=== PATIENT | female | born 2005 | race Two or more races ===

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

== ENCOUNTER 2023-10-03 16:11 | Emergency (ER) | payer MEDICAID, SELFPAY ==
[2023-10-03 16:17] VITALS: BP 147/86; PULSE 87; RESP 16; TEMP 36.4; O2SAT 100; BMI 31.2
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
[2023-10-03 18:02] LABS: UPreg QC Valid YES; Urine Pregnancy NEGATIVE (NEGATIVE)
[2023-10-03] MEDS: cefTRIAXone sodium 500 MG, Lidocaine HCl 1 % MPF 1 ML IM (18:04)
[2023-10-03] MEDS: Diphth,Pertus(ACell),Tet Adult 0.5 ML SYRINGE IM (18:05)
[2023-10-03] MEDS: levonorgestreL 1.5 MG TABLET PO (18:08)
[2023-10-03] MEDS: SANE Doxycycline Monohydrate 100 MG CAPSULE PO (18:10)
--- NOTE | 2023-10-03 18:15 | PC.NURSE ---
NANCI nurse at bedside and [place] [employer] outside room for statement
--- NOTE | 2023-10-03 19:00 | PC.NURSE ---
asssumed care of pt unable to administer medication or vitals at this time due to SANE nurse at bedside for examination
--- NOTE | 2023-10-03 19:52 | MHC.EDTECH ---
This tech took over care of patient at 1900, Latonya Nurse rang call warner for labs,this tech obtained labs and sent to lab.
[2023-10-03 19:53] LABS: MANUAL DIFF FLAG NO
--- NOTE | 2023-10-03 20:01 | MHC.EDTECH ---
Sane nurse with patient at this time,will update vitals when sane kit completed.
[2023-10-03 20:02] LABS: Basophils Absolute Auto 0.1 X10*3/uL (0.0-0.2); Basophils Percent Auto 0.8 % (0-2); Eosinophils Absolute Auto 0.1 X10*3/uL (0.0-0.4); Hematocrit 32.9 % (37.0-47.0); Imm Gran Abs Auto 0.03 X10*3/uL (0.00-0.03); Imm Gran Pct Auto 0.4 % (0.0-0.4); Lymphocytes Absolute Auto 1.7 X10*3/uL (1.2-4.9); Lymphocytes Percent Auto 23.5 % (20-40); Mean Corpuscular HGB Conc 33.4 g/dl (31.0-35.0); Mean Corpuscular Hemoglobin 28.2 pg (27.0-33.0); Mean Corpuscular Volume 84.4 fL (80.0-98.0); Mean Platelet Volume 8.8 fL (9.4-12.3); Monocytes Absolute Auto 0.5 X10*3/uL (0.1-1.2); Monocytes Percent Auto 6.6 % (2-11); Neutrophils Absolute Auto 4.9 x10*3/uL (2.0-8.3); Neutrophils Percent Auto 67.7 % (45-73); Platelet Count 371 X10*3/uL (160-400); Red Cell Distribution Width 14.1 % (11.0-16.0); White Blood Count 7.2 X10*3/uL (4.8-10.8)
[2023-10-03 20:09] LABS: Alanine Aminotransferase 18 U/L (0-31); Aspartate Amino Transferase 25 U/L (5-31); Creatinine Clr Calc Pharmacy 136.1; Estimated Glomerular Filt Rate > 60
[2023-10-03 20:10] LABS: Alanine Aminotransferase 17 U/L (0-31); Albumin Level 4.7 g/dL (3.5-5.0); Alkaline Phosphatase 70 U/L (39-117); Anion Gap 16 (12-20); Aspartate Amino Transferase 25 U/L (5-31); Bilirubin Total 0.7 mg/dL (0.0-1.0); Blood Urea Nitrogen 9 mg/dL (9-16); Calcium 9.4 mg/dL (8.4-10.2); Carbon Dioxide 20 mmol/L (22-29); Chloride 108 mmol/L (96-108); Creatinine Clr Calc Pharmacy 142.1; Estimated Glomerular Filt Rate > 60; Glucose Random 75 mg/dL (60-115); Potassium 3.3 mmol/L (3.3-5.1); Sodium 141 mmol/L (135-145); Total Protein 8.3 g/dL (6.5-8.0)
[2023-10-03 21:07] LABS: Appearance Urine Turbid; Glucose Urine UA Negative (Negative); Leukocyte Esterase Urine Negative (Negative); Nitrite Urine Negative (Negative); PH 5.5 (5.0-9.0); Specific Gravity - Urine >= 1.030 (1.005-1.025); UMIC TRIGGER UA YES; Urine Blood Trace (Negative); Urine Ketones 80 mg/dL (Negative); Urine Protein 30 (1+) mg/dL (Neg-Trace)
[2023-10-03 21:09] LABS: Color Urine Yellow
[2023-10-03 21:12] VITALS: BP 115/49; PULSE 79; RESP 18; TEMP 36.7; O2SAT 98
[2023-10-03 21:12] LABS: Bacteria Urine None Seen (None Seen); WBC Urine 0-5 /HPF (0-5)
--- NOTE | 2023-10-03 21:13 | MHC.EDTECH ---
Patient ambulated to bathroom,urine sample collected,swabs obtained and sent to lab. Vitals updated at this time,RN aware
[2023-10-03 21:43] VITALS: BP 115/49; PULSE 79; RESP 17; TEMP 36.7; O2SAT 99
[2023-10-04 02:56] LABS: CT PCR NOT DETECTED (Not Detect.); NG PCR NOT DETECTED (Not Detect.)
[2023-10-04 08:32] LABS: Syphilis Screen Nonreactive (Nonreactive)
[2023-10-04 08:33] LABS: HBS Num1 1.25 mIU/mL (0-7.99); HBsAGNum1 0.32 S/CO (0.00-0.99); HIV AB/AG Nonreactive (Nonreactive); HIV Num 1 0.06 S/CO (0.00-0.99); Hepatitis B Surface Antigen Negative (Negative); ~HepC Num1 0.13 S/CO (0.00-0.79); ~Hepatitis B Surface Antibody NONREACTIVE (Nonreactive); ~Hepatitis C Antibody Nonreactive (Nonreactive)
[2023-10-04 11:21] LABS: BV Int Neg Control Negative (Negative); BV Int Pos Control Positive (Positive)
== END 2023-10-03 21:44 | disposition home or self-care (01) ==
PROVIDERS: Physician Assistant; Emergency Provider Emergency Medicine Emergency Medical Services
DX: S16.1XXA Strain of muscle, fascia and tendon at neck level, initial encounter (principal); S30.814A Abrasion of vagina and vulva, initial encounter; T76.21XA Adult sexual abuse, suspected, initial encounter; N89.8 Other specified noninflammatory disorders of vagina; M79.651 Pain in right thigh; M54.50 Low back pain, unspecified; M54.2 Cervicalgia; R51.9 Headache, unspecified; Y93.9 Activity, unspecified; Y92.9 Unspecified place or not applicable; Y99.8 Other external cause status; Z11.52 Encounter for screening for COVID-19; Z20.2 Contact with and (suspected) exposure to infections with a predominantly sexual mode of transmission; Z79.899 Other long term (current) drug therapy; Z23 Encounter for immunization
CPT/HCPCS: 0353U; 36415; 80053; 81001; 81025; 82565; 84450; 84460; 85025; 86706; 86780; 86803; 87340; 87389; 87480; 87510; 87660; 90471; 90472; 90651; 90715; 96372; 99284; 99285; J0696

== ENCOUNTER 2024-08-07 09:49 | Outpatient (REF) | payer MEDICAID, SELFPAY ==
--- OUTSIDE RECORDS SUMMARY | 2024-08-07 10:33 | XMS_ITS | Encounter Summary ---
Author Organization [facility] Address [address] [place] [address] Care Team Providers Care Livestock Feeder Name Role Phone Anitha Landaverde NP Primary Care Provider [phone] Encounter Details Date Type Department Care Team (Late st Contact Info) Description 07/25/2024 Patient Outreach [facility] [address] [place] [address] Anitha Landaverde NP [address] [place] [address] Social History Tobacco Use Types Packs/Day Years Used Date Smoking Tobacco: Never Assessed Comments Unknown Sex and Gender Information Value Date Recorded Sex Assigned at Female 05/03/2022 10:21 AM EDT Legal Sex Female 10:21 AM EDT Gender Identity Female 05/03/2022 10:21 AM EDT Sexual Orientation Choose not to disclose 2021 10:21 AM EDT documented as of this encounter Plan of Treatment Not on file documented as of this encounter Visit Diagnoses Not on filedocumented in this encounter Care Teams Livestock Feeder Relationship Specialty Start Date End Date Anitha Landaverde NP [address] [place] [address] PCP - General Family Medicine 04/26/23 08/06/24 documented as of this encounter
--- OUTSIDE RECORDS SUMMARY | 2024-08-07 10:33 | XMS_ITS | Encounter Summary ---
Author Organization [facility] Address [address] [facility] [address], [place] [address] Care Team Providers Care Fabrication Technician Name Role Phone Anitha Landaverde NP Primary Care Provider [phone] Reason for Visit * Reason Comments Pre-visit Planning (Unable to reach for PVP screening, LVM) Encounter Details Date Type Department Care Team ([facility] st Contact Info) Description 07/25/2024 Patient Outreach [facility] MED[facility]INE [address] [place] [address] Anitha Landaverde NP [address] [place] [address] Pre-visit Planning ((Unable to reach for PVP screening, LVM)) Social History Tobacco Use Types Packs/Day Years Used Date Smoking Tobacco: Never Assessed Comments Unknown Sex and Gender Information Value Date Recorded Sex Assigned at Female 05/03/2022 10:21 AM EDT Legal Sex Female 10:21 AM EDT Gender Identity Female 05/03/2022 10:21 AM EDT Sexual Orientation Choose not to disclose 2021 10:21 AM EDT documented as of this encounter Progress Notes * Alexandria Peng - 07/25/2024 11:21 AM EST CC Alexandria. Placed outbound call to patient to complete pre-visit planning. No answer at this time. Patient name and were not confirmed. CC left voicemail requesting return call. Direct contact information provided. documented in this encounter Plan of Treatment Not on file documented as of this encounter Visit Diagnoses Not on filedocumented in this encounter Care Teams Fabrication Technician Relationship Specialty Start Date End Date Anitha Landaverde NP [address] [place] [address] PCP - General Family Medicine 04/26/23 08/06/24 documented as of this encounter
--- OUTSIDE RECORDS SUMMARY | 2024-08-07 10:33 | XMS_ITS | Clinical Summary ---
Author Organization [employer] Address [address] [facility] 7[address] [place] [address] Care Team Providers Care Research Greenhouse Supervisor Name Role Phone Jessica Shoemaker MD Primary Care Provider [phone] Allergies No known active allergies Medications No known medications Active Problems Problem Noted Date Diagnosed Date Disturbance in sleep behavior 08/07/2024 Mood altered 08/07/2024 Screening examination for STI 08/07/2024 Developmental delay 06/22/2018 Encounters Date Type Department Care Team Description 08/07/2024 9:45 AM EST Office Visit [facility] MEDICINE [address] [place] [id number] Jessica Shoemaker MD Screening examination for STI (Primary Dx); Dietary counseling; Exercise counseling; Class 1 obesity without serious comorbidity with body mass index (BMI) of 30.0 to 30.9 in adult, unspecified obesity type 08/07/2024 Travel 07/25/2024 Patient Outreach [facility] [address] [place] [id number] Anitha Landaverde NP Pre-visit Planning ((Unable to reach for PVP screening, LVM)) 07/25/2024 Patient Outreach [facility] [address] [place] [id number] Anitha Landaverde NP from Last 3 Months Social History Tobacco Use Types Packs/Day Years Used Date Smoking Tobacco: Never Passive Smoke Exposure: Never Smokeless Tobacco: Never Tobacco Cessation:Counseling Given: Not Answered Depression Answer Date Recorded Patient Health Questionnaire-9 Score 0 08/07/2024 Patient Health Questionnaire-9 Score 0 08/07/2024 Last PHQ-9: Questionnaire Data Not on file 0 08/07/2024 Housing Stability Answer Date Recorded What is your housing situation today? I have chris sun 08/07/[address] you li ve. Do you have problems with any of the following? None of the above 08/07/2024 Food Insecurity Answer Date Recorded Within the past 12 months, y ou worried that your food would run out before you got money to buy more: Never True 08/07/2024 Within the past 12 months,th e food you bought just didn't last and you didn't have enough money to get more: Never True 10/2024 Transportation Answer Date Recorded In the past 12 months, has l ack of transportation kept you from medical appts, meetings, work or from getting things needed for daily living? No 08/07/2024 Utilities Answer Date Recorded In the past 12 months, has t he electric, gas, oil or water company threatened to shut off services in your home? No 08/07/2024 Depression Answer Date Recorded Patient Health Questionnaire-2 Score 0 08/07/2024 Internet Access Answer Date Recorded Internet Access Q1 Yes 08/07/2024 Internet Access Q2 Not on file 08/07/2024 Comments Unknown Sex and Gender Information Value Date Recorded Sex Assigned at Female 05/03/2022 10:21 AM EDT Legal Sex Female 10:21 AM EDT Gender Identity Female 05/03/2022 10:21 AM EDT Sexual Orientation Choose not to disclose 2021 10:21 AM EDT Last Filed Vital Signs Vital Sign Reading Time Taken Comments Blood Pressure 121/67 08/07/2024 9:16 AM EST Pulse 84 08/07/2024 9:16 AM EST Temperature 36.2 ??C (97.1 ??F) 08/07/2024 9:16 AM ES T Respiratory Rate 20 08/07/2024 9:16 AM EST Oxygen Saturation 99% 08/07/2024 9:16 AM EST Inhaled Oxygen Concentration - - Weight 85.8 kg (189 lb 3.2 oz) 08/07/2024 9:16 A M EST Height 165.1 cm (5' 5 ) 08/07/2024 9:16 AM EST Body Mass Index 31.48 08/07/2024 9:16 AM EST Plan of Treatment Health Maintenance Due Date Last Done Comments Chlamydia and Gonorrhea Screening 2003 HIV Screening 2003 Lipid Panel 2003 Alcohol/Substance Use Screening 2015 Family Planning (PISQ) 09/10/2018 HPV Vaccines (1 - 3-dose series) 09/10/2018 Hepatitis C Screening 09/10/2021 DTaP/Tdap/Td Vaccines (1 - Tdap) 09/10/2022 Hepatitis B Vaccines (1 of 3 - 19+ 3-dose series) 09/10/2022 COVID-19 Vaccine (1 - 2023-2 5 season) 2024 Influenza Vaccine (#1) 2024 Depression Screening 08/07/2025 08/07/2024, 08/07/2024 SDOH Screening 08/07/2025 08/07/2024 Tobacco Screening 08/07/2025 08/07/2024 Zoster Vaccines (1 of 2) 09/10/2053 RSV Patients and Patients Aged 60 years or older (1 - 1-dose 75+ series) 09/10/2078 HIB Vaccines Aged Out No longer eligi ble based on patient's age to complete this topic Hepatitis A Vaccines Aged Out No long er eligible based on patient's age to complete this topic IPV Vaccines Aged Out No longer eligi ble based on patient's age to complete this topic Meningococcal Vaccine Aged Out No doug armida eligible based on patient's age to complete this topic Pneumococcal Vaccine: Pediatrics (0 to 5 Years) and At-Risk Patients (6 to 49) Years) Aged Out No longer eligible b ased on patient's age to complete this topic RSV under 20 months Aged Out No longe r eligible based on patient's age to complete this topic Rotavirus Vaccines Aged Out No longer eligible based on patient's age to complete this topic Insurance [facility] C3 Care Teams Research Greenhouse Supervisor Relationship Specialty Start Date End Date Jessica Shoemaker MD [address] [place] [id number] PCP - General Family Medicine 08/07/24
--- OUTSIDE RECORDS SUMMARY | 2024-08-07 10:33 | XMS_ITS | Encounter Summary ---
Author Organization [employer] Address [address] [facility] 7[address] [place] [address] Care Team Providers Care Optical Designer Name Role Phone Jessica Shoemaker MD Primary Care Provider [phone] Reason for Visit * Reason Comments Establish Care Encounter Details Date Type Department Care Team ([facility] st Contact Info) Description 08/07/2024 9:45 AM EST Office Visit [facility] MEDICINE [address] [place] [address] Jessica Shoemaker MD [address] [place] [address] Screening examination for STI (Primary Dx); Dietary counseling; Exercise counseling; Class 1 obesity without serious comorbidity with body mass index (BMI) of 30.0 to 30.9 in adult, unspecified obesity type Social History Tobacco Use Types Packs/Day Years [...] AM EDT documented as of this encounter Last Filed Vital Signs Vital Sign Reading [...] Mass Index 31.48 08/07/2024 9:16 AM EST documented in this encounter Plan of Treatment Scheduled Orders Name Type Priority Associated Diagnoses Orde r Schedule HIV-1/2 Antigen and Antibodies, Fourth Generation, with Reflexes Lab Routine Screening examination for STI Expected: 08/07/2024 (Approximate), Expires: 08/07/2025 Chlamydia/N. Gonorrhoeae RNA, TMA, Urogenitial Microbiology Routine Screening examination for STI Expected: 08/07/2024 (Approximate), Expires: 08/07/2025 Hepatitis C Antibody with Reflex to HCV, RNA, Quantitative, Real-Time PCR Lab Routine Screening examination for STI Expected: 08/07/2024, Expires: 08/07/2025 RPR (Monitor) with Reflex to??Titer Lab Routine Screening examination for STI Expected: 08/07/2024, Expires: 08/07/2025 Comprehensive Metabolic Panel Lab Routine Class 1 obesity without serious comorbidity with body mass index (BMI) of 30.0 to 30.9 in adult, unspecified obesity type Expected: 08/07/2024 (Approximate), Expires: 08/07/2025 Hemoglobin A1c Lab Routine Class 1 obesity without serious comorbidity with body mass index (BMI) of 30.0 to 30.9 in adult, unspecified obesity type Expected: 08/07/2024 (Approximate), Expires: 08/07/2025 documented as of this encounter Visit Diagnoses Diagnosis Screening examination for STI- Primary Dietary counseling Dietary surveillance and counseling Exercise counseling Class 1 obesity without serious comorbidity with body mass index (BMI) of 30.0 to 30.9 in adult, unspecified obesity type documented in this encounter Additional Health Concerns Assessment Noted Time PHQ-9 Depression Total Score: 0 08/07/19 9:18 AM EST documented as of this encounter Care Teams Optical Designer Relationship Specialty Start Date End Date Jessica Shoemaker MD [address] [place] [address] PCP - General Family Medicine 08/07/24 documented as of this encounter
--- OUTSIDE RECORDS SUMMARY | 2024-08-07 10:33 | XMS_ITS | Encounter Summary ---
Author Organization [employer] Address [address] [facility] 7[address] [place] [address] Care Team Providers Care Cargo Trimmer Name Role Phone Jessica Shoemaker MD Primary Care Provider [phone] Encounter Details Date Type Department Care Team (Latest Contact Info) Description 08/07/2024 Travel Social History Tobacco Use Types Packs/Day Years Used Date Smoking Tobacco: Never Passive Smoke Exposure: Never Smokeless Tobacco: Never Depression Answer Date Recorded Patient Health Questionnaire-9 [...] Diagnoses Not on filedocumented in this encounter Additional Health Concerns Assessment Noted Time PHQ-9 Depression Total Score: 0 08/07/19 9:18 AM EST documented as of this encounter Care Teams Cargo Trimmer Relationship Specialty Start Date End Date Jessica Shoemaker MD [address] [place] [id number] PCP - General Family Medicine 08/07/24 documented as of this encounter
[2024-08-07 11:45] LABS: Estimated Average Glucose 103 mg/dL; Hemoglobin A1C 98.4414 umol/L; Hemoglobin A1c % 5.2 % (<6.0); Total Hemoglobin (HGBA1C) 2910.9837 umol/L
[2024-08-07 12:13] LABS: Alanine Aminotransferase 12 U/L (0-31); Albumin Level 4.5 g/dL (3.5-5.0); Alkaline Phosphatase 55 U/L (39-117); Anion Gap 16 (12-20); Aspartate Amino Transferase 15 U/L (5-31); Bilirubin Total 0.3 mg/dL (0.0-1.0); Blood Urea Nitrogen 7 mg/dL (9-16); Calcium 9.2 mg/dL (8.4-10.2); Carbon Dioxide 24 mmol/L (22-29); Chloride 108 mmol/L (96-108); Estimated Glomerular Filt Rate > 60; Glucose Random 91 mg/dL (60-115); Potassium 4.1 mmol/L (3.3-5.1); Sodium 144 mmol/L (135-145)
[2024-08-07 12:15] LABS: HIV AB/AG Nonreactive (Nonreactive); HIV Num 1 0.06 S/CO (0.00-0.99); ~HepC Num1 0.11 S/CO (0.00-0.79); ~Hepatitis C Antibody Nonreactive (Nonreactive)
[2024-08-07 13:03] LABS: CT PCR NOT DETECTED (Not Detect.); NG PCR NOT DETECTED (Not Detect.)
[2024-08-09 16:53] LABS: RPR Rapid Plasma Reagin NON-REACTIVE (NON-REACTIVE)
== END 2024-08-07 09:50 | disposition home or self-care (01) ==
LOC: HO.HHCL 09:49
PROVIDERS: Visit Provider General Practice
DX: Z11.3 Encounter for screening for infections with a predominantly sexual mode of transmission (principal); E66.811 Obesity, class 1; Z68.30 Body mass index [BMI] 30.0-30.9, adult
CPT/HCPCS: 80053; 83036; 86592; 86803; 87389; 87491; 87591

== ENCOUNTER 2024-10-06 03:22 | Emergency (ER) | payer MEDICAID, SELFPAY ==
--- NOTE | ~2024-10-06 | XR_ITS ---
CLINICAL HISTORY: pain, jumped from second floor 4 view left ankle Comparison: None Findings: There are fractures of the medial malleolus and distal fibula No significant arthritic change or erosions. No ankle effusion. No radiopaque foreign body. IMPRESSION: 1. Medial malleolar and distal fibular fractures. This document has been electronically signed by: Donnell Lang MD on 10/06/2024 05:02:48
--- NOTE | ~2024-10-06 | XR_ITS ---
CLINICAL HISTORY: pain, jumped from 2nd floor 2 view right knee Comparison: None Findings: No fractures or dislocations. No significant arthritic change or erosions. No joint effusion. No radiopaque foreign body. IMPRESSION: 1. No acute findings. This document has been electronically signed by: Donnell Lang MD on 10/06/2024 05:02:06
--- NOTE | ~2024-10-06 | XR_ITS ---
CLINICAL HISTORY: pain, jumped from 2nd floor 3 view right foot Comparison: None Findings: Bones intact. No dislocations. No significant loss of joint space, osteophytes, or erosions. No ankle effusion. No radiopaque foreign body. IMPRESSION: 1. No acute findings. This document has been electronically signed by: Donnell Lang MD on 10/06/2024 05:01:49
--- NOTE | ~2024-10-06 | XR_ITS ---
CLINICAL HISTORY: pain, jumped from second floor 4 view left foot Comparison: None Findings: There are fractures of the distal fibula and medial malleolus. No dislocations. No significant arthritic change or erosions. No ankle effusion. No radiopaque foreign body. IMPRESSION: 1. Distal fibular and medial malleolar fractures. This document has been electronically signed by: Donnell Lang MD on 10/06/2024 05:07:24
--- NOTE | ~2024-10-06 | XR_ITS ---
CLINICAL HISTORY: pain, jumped from 2nd floor 3 view right ankle Comparison: None Findings: No acute fractures or dislocations. No significant loss of joint space, osteophytes, or erosions. No ankle effusion. No radiopaque foreign body. IMPRESSION: 1. No acute findings. This document has been electronically signed by: Donnell Lang MD on 10/06/2024 05:02:02
--- NOTE | ~2024-10-06 | XR_ITS ---
CLINICAL HISTORY: pain, jumped from 2nd floor 2 view left knee Comparison: None Findings: No fractures or dislocations. No significant arthritic change or erosions. No joint effusion. No radiopaque foreign body. IMPRESSION: 1. No acute findings. This document has been electronically signed by: Donnell Lang MD on 10/06/2024 05:01:22
[2024-10-06 03:34] VITALS: BP 128/60; PULSE 117; O2SAT 99; BMI 32.9
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
[2024-10-06 04:36] LABS: MANUAL DIFF FLAG NO
[2024-10-06 04:37] LABS: Basophils Percent Auto 0.2 % (0-2); Eosinophils Percent Auto 0.1 % (0-4); Hematocrit 29.9 % (37.0-47.0); Hemoglobin 10.2 g/dl (12.0-16.0); Imm Gran Abs Auto 0.06 X10*3/uL (0.00-0.03); Imm Gran Pct Auto 0.5 % (0.0-0.4); Lymphocytes Absolute Auto 1.5 X10*3/uL (1.2-4.9); Lymphocytes Percent Auto 12.8 % (20-40); Mean Corpuscular HGB Conc 34.1 g/dl (31.0-35.0); Mean Corpuscular Hemoglobin 27.8 pg (27.0-33.0); Mean Corpuscular Volume 81.5 fL (80.0-98.0); Mean Platelet Volume 8.8 fL (9.4-12.3); Monocytes Absolute Auto 0.6 X10*3/uL (0.1-1.2); Monocytes Percent Auto 5.1 % (2-11); Neutrophils Absolute Auto 9.6 x10*3/uL (2.0-8.3); Neutrophils Percent Auto 81.3 % (45-73); Platelet Count 364 X10*3/uL (160-400); Red Blood Count 3.67 X10*6/uL (4.20-5.50); White Blood Count 11.8 X10*3/uL (4.8-10.8)
[2024-10-06 04:41] VITALS: BP 100/55; PULSE 107; RESP 18; TEMP 37.2; O2SAT 95
[2024-10-06] MEDS: traMADoL HCL 50 MG TABLET PO (04:44)
[2024-10-06 04:50] LABS: Amphetamine Screen Urine Not Detected (Not Detect); Barbiturates, Urine Not Detected (Not Detect); Benzodiazepines Screen Urine Not Detected (Not Detect); Buprenorphine Scr Not Detected (Not Detect); Cannabinoid Screen Urine Not Detected (Not Detect); Cocaine Screen Urine Not Detected (Not Detect); Fentanyl, urine Not Detected (Not Detect); Methadone Screen, Urine Not Detected (Not Detect); Opiate Screen Urine Not Detected (Not Detect); Oxycodone Screen Urine Not Detected (Not Detect); Phencyclidine Screen Urine Not Detected (Not Detect)
[2024-10-06 04:58] LABS: Alanine Aminotransferase 16 U/L (0-31); Albumin Level 4.5 g/dL (3.5-5.0); Alkaline Phosphatase 62 U/L (39-117); Anion Gap 15 (12-20); Aspartate Amino Transferase 26 U/L (5-31); Bilirubin Direct 0.1 mg/dL (0.0-0.5); Bilirubin Total 0.4 mg/dL (0.0-1.0); Blood Urea Nitrogen 7 mg/dL (9-16); Calcium 9.1 mg/dL (8.4-10.2); Carbon Dioxide 20 mmol/L (22-29); Chloride 111 mmol/L (96-108); Creatinine Clr Calc Pharmacy 150.6; Estimated Glomerular Filt Rate > 60; Ethanol 149 mg/dL; Glucose Random 100 mg/dL (60-115); Magnesium 2.1 mg/dL (1.6-2.6); Potassium 3.4 mmol/L (3.3-5.1); Sodium 143 mmol/L (135-145); Total Protein 7.8 g/dL (6.5-8.0)
[2024-10-06 04:59] LABS: HCG Quantitative < 2 mIU/mL
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
[2024-10-06 06:30] VITALS: BP 100/55; PULSE 107; RESP 18; TEMP 37.2; O2SAT 95
== END 2024-10-06 06:33 | disposition home or self-care (01) ==
PROVIDERS: Emergency Provider Emergency Medicine; PCP General Practice
DX: S82.52XA Displaced fracture of medial malleolus of left tibia, initial encounter for closed fracture (principal); S82.832A Other fracture of upper and lower end of left fibula, initial encounter for closed fracture; W13.4XXA Fall from, out of or through window, initial encounter; F10.120 Alcohol abuse with intoxication, uncomplicated; Y90.6 Blood alcohol level of 120-199 mg/100 ml; Y93.89 Activity, other specified; Y92.013 Bedroom of single-family (private) house as the place of occurrence of the external cause; Y99.9 Unspecified external cause status
CPT/HCPCS: 29515; 36415; 73560; 73600; 73620; 80048; 80076; 80307; 83735; 84702; 85025; 99283; 99284

== ENCOUNTER → 2024-10-06 03:52 | Outpatient (BNV) | payer MEDICAID, SELFPAY | PROVIDERS: Emergency Provider Emergency Medicine; PCP General Practice; Visit Provider Specialist | DX: M25.562 Pain in left knee (principal); M25.561 Pain in right knee; S82.52XA Displaced fracture of medial malleolus of left tibia, initial encounter for closed fracture; S82.842A Displaced bimalleolar fracture of left lower leg, initial encounter for closed fracture; M25.571 Pain in right ankle and joints of right foot | CPT/HCPCS: 73560; 73600; 73620 ==

== ENCOUNTER 2024-10-15 11:23 | Outpatient (AMB) | payer MEDICAID, SELFPAY ==
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
[2024-10-15 11:39] VITALS: BMI 32.9
--- OUTSIDE RECORDS SUMMARY | 2024-10-15 13:25 | XMS_ITS | Encounter Summary ---
Author Organization [employer] Address [address] [place] [address] Care Team Providers Care Machine Scallop Cutter Name Role Phone Jessica Shoemaker MD Primary Care Provider [phone] Reason for Visit * Reason Onset Date Comments Durable Medical Equipment 10/08/2024 Encounter Details Date Type Department Care Team ([facility] st Contact Info) Description 10/08/2024 Telephone [facility] [address] [place] [address] Jessica Shoemaker MD [address] [place] [address] Durable Medical Equipment Social History Tobacco Use Types Packs/Day Years Used Date Smoking Tobacco: Never Passive Smoke Exposure: Never Smokeless Tobacco: Never Depression Answer Date Recorded Patient Health Questionnaire-9 Score 0 08/07/2024 Patient Health Questionnaire-9 Score 0 08/07/2024 Last PHQ-9: Questionnaire Data Not on file 0 08/07/2024 Housing Stability Answer Date Recorded What is your housing situation today? I have chrisroberta sun 08/07/[address] you [...] AM EDT documented as of this encounter Miscellaneous Notes * Telephone Encounter - Valarie Peng - 10/08/2024 10:23 AM EDT TC from pt Mother requesting below DME Commode Shower bench Foldable wheel chair documented in this encounter Plan of Treatment Not on file documented as of this encounter Visit Diagnoses Not on filedocumented in this encounter Additional Health Concerns Assessment Noted Time PHQ-9 Depression Total Score: 0 08/07/19 9:18 AM EST documented as of this encounter Care Teams Machine Scallop Cutter Relationship Specialty Start Date End Date Jessica Shoemaker MD [address] [place] [address] PCP - General Family Medicine 08/07/24 documented as of this encounter
--- OUTSIDE RECORDS SUMMARY | 2024-10-15 13:25 | XMS_ITS | Encounter Summary ---
Author Organization [facility] Address [address] [facility] [address] [place] [address] Care Team Providers Care Parts Identifier Name Role Phone Jessica Shoemaker MD Primary Care Provider [phone] Reason for Referral * Consultation (Urgent) - Authorized Specialty Diagnoses / Procedures Referred By Kandy estrada Referred To Contact Orthopaedic Surgery Diagnoses Avulsion fracture of distal fibula Jessica Shoemaker MD [address] [place] [address] Phone: tel: fax: [facility] [address] [place] [address] Drive [address] [place] [address] Phone: tel: fax: Referral ID Status Reason Start Date Expiration Date Visits Requested Visits Authorized [id number] Authorized Specialty Services Required 10/09/2024 10/09/2025 6 6 Encounter Details Date Type Department Care Team (Late st Contact Info) Description 10/09/2024 Orders Only [facility] [address] [place] [address] Jessica Shoemaker MD [address] [place], [place] [phone] Avulsion fracture of distal fibula (Primary Dx) Social History Tobacco Use Types Packs/Day Years [...] as of this encounter Plan of Treatment Scheduled Referrals Name Type Priority Associated Diagnoses Order Schedule Referral to Orthopaedic Surgery Outpatient Referral Urgent Avulsion fracture of distal fibula Expected: 10/09/2024 (Approximate), Expires: 10/09/2025 documented as of this encounter Visit Diagnoses Diagnosis Avulsion fracture of distal fibula- Primary documented in this encounter Additional Health Concerns Assessment Noted Time PHQ-9 Depression Total Score: 0 08/07/19 9:18 AM EST documented as of this encounter Care Teams Parts Identifier Relationship Specialty Start Date End Date Jessica Shoemaker MD [address] [place] [address] PCP - General Family Medicine 08/07/24 documented as of this encounter
--- OUTSIDE RECORDS SUMMARY | 2024-10-15 13:25 | XMS_ITS | Encounter Summary ---
Author Organization [employer] Address [address] [facility] 7t [place] [address] Care Team Providers Care Volleyball Assembler Name Role Phone Jessica Shoemaker MD Primary Care Provider [phone] Reason for Visit * Reason Onset Date Comments Letter for School/Work 10/11/2024 Encounter Details Date Type Department Care Team ([facility] st Contact Info) Description 10/11/2024 Telephone [facility] MEDICINE [address] [place] [address] Jessica Shoemaker MD [address] [place] [address] Letter for School/Work Social History Tobacco Use Types Packs/Day Years [...] t he electric, gas, oil or water [employer] threatened to shut off services in your [...] encounter Miscellaneous Notes * Telephone Encounter - Salina Trinh RN - 10/12/2024 4:23 PM EDT Noted. RN called [facility] ortho [phone] who reports they have NOT spoken to patient or mom. [facility] ortho reports they have attempted to contact the patient 3 times however they have not made contact with the patient. RN was informed on 10/08 they called and LVM, on 10/10 the call was answered and disconnected and on 10/12 they called and LVM and sent a letter to address on file. RN inquired on telephone number they have on file for the patient which was not accurate per our records. RN provided updatednumber per the number we have in [facility] as RN spoke to the patient yesterday via the number in the chart. [facility] ortho reports they will attempt calling the patient again and scheduling an appointment. [facility] also reports they need a referral from PCP as only the first visit will be covered by ED referral and future f/u visits will need a PCP referral. Please place ortho referral. TC placed to patient [phone] who reports she just got off the phone with [facility] ortho and is scheduled to see them on 10/15 at 11:45am. RN advised patient to ask [facility] ortho for a letter to extend work excuse at Mondays appointment as they will be the ones providing care to the patient d/t the reason she will be out of work. Patient verbalized understanding. Patient to f/u PRN. * Telephone Encounter - Salina Trinh RN - 10/11/2024 2:38 PM EDT TC placed to patient [phone] in regards to below message. Patient and mom were on the phone during the call. RN was informed patient was given a work excuse from the emergency room on 10/06/24 until 10/13/24 with hopes the patient would be seen by [facility] ortho by 10/13/24 to receive work extension (if needed). Patient and mom report the patient received a call from [facility] ortho 3 days ago stating theywould receive a call within 1 week with an appointment to see [facility] orho. Mom and patient are still awaiting call with appointment. Mom and patient are requesting a work note excuse extension as patient is only excused until 10/13/24. Please advise. Thank you! * Telephone Encounter - Bridger Thomas - 10/11/2024 2:11 PM EDT TC from mother reports [facility] Surgeons office was to contact pt to schedule Leg operation, but have not contacting her yet . Pt's job [employer] is requesting a new excuse letter excusing her for additional time off until after she gets surgery done, currently letter from surgeons office expires 09/12/24 . Needing a new letter before employers terminates her . Needs letter by 09/12/24 documented in this encounter Plan of Treatment Not on file documented as of this encounter Visit Diagnoses Not on filedocumented in this encounter Additional Health Concerns Assessment Noted Time PHQ-9 Depression Total Score: 0 08/07/19 9:18 AM EST documented as of this encounter Care Teams Volleyball Assembler Relationship Specialty Start Date End Date Jessica Shoemaker MD [address] [place] [phone] PCP - General Family Medicine 08/07/24 documented as of this encounter
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
== END 2024-10-15 12:54 | disposition home or self-care (01) ==
LOC: HO.HOS 11:23
PROVIDERS: PCP General Practice; Visit Provider Physician Assistant
DX: S82.832A Other fracture of upper and lower end of left fibula, initial encounter for closed fracture (principal); S82.52XA Displaced fracture of medial malleolus of left tibia, initial encounter for closed fracture; W13.4XXA Fall from, out of or through window, initial encounter
CPT/HCPCS: 29515; 99204

== ENCOUNTER 2024-10-15 11:23 | Outpatient (REF) | payer MEDICAID, SELFPAY ==
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
--- OUTSIDE RECORDS SUMMARY | 2024-10-15 13:48 | XMS_ITS | Encounter Summary ---
Author Organization [employer] Address [address] [facility] 7t [place] [address] Care Team Providers Care Arts And Crafts Teacher Name Role Phone Jessica Shoemaker MD Primary Care Provider [phone] Reason for Visit * Reason Onset Date Comments Durable Medical Equipment 10/08/2024 Encounter Details Date Type Department Care Team ([facility] st Contact Info) Description 10/08/2024 Telephone [facility] MEDICINE [address] [place] [address] Jessica Shoemaker MD [address] [place] [address] Durable Medical Equipment Social History Tobacco Use [...] documented as of this encounter Care Teams Arts And Crafts Teacher Relationship Specialty Start Date End Date Jessica Shoemaker MD [address] [place] [address] PCP - General Family Medicine 08/07/24 documented as of this encounter
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
--- OUTSIDE RECORDS SUMMARY | 2024-10-15 13:48 | XMS_ITS | Encounter Summary ---
Author Organization [employer] [facility] Address [address] [facility] 7t [place] [address] Care Team Providers Care Blow Pit Operator Name Role Phone Jsesica Shoemaker MD Primary Care Provider [phone] Reason for Referral * Consultation (Urgent) - Authorized Specialty Diagnoses / Procedures Referred By Kandy estrada Referred To Contact Orthopaedic Surgery Diagnoses Avulsion fracture of distal fibula Jessica Shoemaker MD [address] [place] [address] Phone: tel: fax: [facility] [address] [place] [address] Drive [address] [place] [address] Phone: tel: fax: Referral ID Status Reason Start Date Expiration Date Visits Requested Visits Authorized [id number] Authorized Specialty Services Required 10/09/2024 10/09/2025 6 6 Encounter Details Date Type Department Care Team (Late st Contact Info) Description 10/09/2024 Orders Only [facility] MEDICINE [address] [place] [address] Jessica Shoemaker MD [address] [place], [place] [phone] Avulsion fracture of distal fibula (Primary Dx) [...] documented as of this encounter Care Teams Blow Pit Operator Relationship Specialty Start Date End Date Jessica Shoemaker MD [address] [place] [phone] PCP - General Family Medicine 08/07/24 documented as of this encounter
--- OUTSIDE RECORDS SUMMARY | 2024-10-15 13:48 | XMS_ITS | Encounter Summary ---
Author Organization [employer] Address [address] [facility] 7t [place] [address] Care Team Providers Care Lead Enterprise Architect Name Role Phone Jessica Shoemaker MD Primary Care Provider [phone] Reason for Visit * Reason Onset Date Comments Letter for School/Work 10/11/2024 Encounter Details Date Type Department Care Team ([facility] st Contact Info) Description 10/11/2024 Telephone [facility]INE [address] [place] [address] Jessica Shoemaker MD [address] [place] [address] Letter for School/Work Social History Tobacco Use [...] t he electric, gas, oil or water [email or web address] threatened to shut off services in your [...] 10/12/2024 4:23 PM EDT Noted. RN called [facility] [phone] who reports they have NOT spoken to patient or mom. [facility] reports they have attempted to contact [...] updatednumber per the number we have in [facility] as RN spoke to the patient yesterday via the number in the chart. [facility] reports they will attempt calling the patient again and scheduling an appointment. [facility] also reports they need a referral from PCP as only the first visit will be covered by ED referral and future f/u visits will need a PCP referral. Please place ortho referral. TC placed to patient [phone] who reports she just got off the phone with [facility] and is scheduled to see them on 10/15 at 11:45am. RN advised patient to ask [facility] for a letter to extend work excuse at Mondays appointment as they will be the ones providing care to the patient d/t the reason she will be out of work. Patient verbalized understanding. Patient to f/u PRN. * Telephone Encounter - Salina Trinh RN - 10/11/2024 2:38 PM EDT TC placed to patient [phone] in regards to below message. Patient and mom were on the phone during the call. RN was informed patient was given a work excuse from the emergency room on 10/06/24 until 10/13/24 with hopes the patient would be seen by [facility] by 10/13/24 to receive work extension (if needed). Patient and mom report the patient received a call from [facility] 3 days ago stating theywould receive a call within 1 week with an appointment to see [facility]. Mom and patient are still awaiting call with appointment. Mom and patient are requesting a work note excuse extension as patient is only excused until 10/13/24. Please advise. Thank you! * Telephone Encounter - Bridger Thoams - 10/11/2024 2:11 PM EDT TC from mother reports [facility] office was to contact pt to schedule Leg operation, but have not contacting her yet . Pt's job [employer] is requesting a new excuse letter excusing [...] documented as of this encounter Care Teams Lead Enterprise Architect Relationship Specialty Start Date End Date Jessica Shoemaker MD [address] [place] [phone] PCP - General Family Medicine 08/07/24 documented as of this encounter
== END 2024-10-15 11:24 | disposition home or self-care (01) ==
LOC: HO.HOSX 11:23
PROVIDERS: PCP General Practice; Visit Provider Physician Assistant
DX: M25.572 Pain in left ankle and joints of left foot (principal); S82.62XD Displaced fracture of lateral malleolus of left fibula, subsequent encounter for closed fracture with routine healing; S82.52XD Displaced fracture of medial malleolus of left tibia, subsequent encounter for closed fracture with routine healing; S92.145D Nondisplaced dome fracture of left talus, subsequent encounter for fracture with routine healing
CPT/HCPCS: 29515; 73610; 99212

== ENCOUNTER → 2024-10-15 11:47 | Outpatient (BNV) | payer MEDICAID, SELFPAY | PROVIDERS: PCP General Practice; Visit Provider Radiology Diagnostic Radiology | DX: M25.572 Pain in left ankle and joints of left foot (principal); S82.842A Displaced bimalleolar fracture of left lower leg, initial encounter for closed fracture | CPT/HCPCS: 73610 ==

== ENCOUNTER 2024-10-16 11:21 | Day surgery (SDC) | payer MEDICAID, SELFPAY ==
[2024-10-16] VITALS (7 sets, daily range): BP systolic 96–109; BP diastolic 56–66; PULSE 60–83; RESP 16; TEMP 36.3–36.9; O2SAT 98–100; BMI 32.9
--- NOTE | ~2024-10-16 | FL_ITS ---
EXAMINATION: FL GUIDANCE ONLY HISTORY: fracture left ankle COMPARISON: Correlation is made with plain films of the left ankle dated 10/15/2024. TECHNIQUE: Fluoroscopy time: 0.1 minutes. Cumulative Dose: 0.310 mGy. DAP: 0.95113 mGym2 Images: 2. FINDINGS: Images demonstrate internal fixation of the previously noted fracture of the medial malleolus with two screws. A minimally displaced distal fibular fracture is again noted. The previously seen fracture of the lateral aspect of the talar dome is not well visualized on these images. FL/FL guidance in OR IMPRESSION: Fluoroscopy during procedure. Please see procedure report for additional information. Electronically signed by: Bill Rocha MD 10/17/2024 07:13 AM EDT
--- OUTSIDE RECORDS SUMMARY | 2024-10-16 06:58 | XMS_ITS | Encounter Summary ---
Author Organization [facility] Address [address] [facility] 7t [place] [address] Care Team Providers Care Manager Infrastructure Name Role Phone Jessica Shoemaker MD Primary Care Provider Reason for Referral * Consultation (Routine) - Closed Specialty Diagnoses / Procedures Referred By Kandy estrada Referred To Contact Orthopaedic Surgery Diagnoses Avulsion fracture of distal fibula Jessica Shoemaker MD [address] [place] [address] Phone: tel: fax: [place] [address] [place] [address] Phone: tel: fax: Referral ID Status Reason Start Date Expiration Date V isits Requested Visits Authorized [id number] Closed Specialty Services Required 10/15/2024 10/15/2025 6 6 * Consultation (Urgent) - Authorized Specialty Diagnoses / Procedures Referred By Kandy estrada Referred To Contact Orthopaedic Surgery Diagnoses Avulsion fracture of distal fibula Jessica Shoemaker MD [address] [place] [address] Phone: tel: fax: [place] [address] [place] [address] Phone: tel: fax: Referral ID Status Reason Start Date Expiration Date Visits Requested Visits Authorized [id number] Authorized Specialty Services Required 10/09/2024 10/09/2025 6 6 Encounter Details Date Type Department Care Team (Late st Contact Info) Description 10/09/2024 Orders Only [facility] MEDICINE [address] [place] [address] Jessica Shoemaker MD [address] [place] [address] Avulsion fracture of distal fibula (Primary Dx) [...] distal fibula Expected: 10/09/2024 (Approximate), Expires: 10/09/2025 Referral to Orthopaedic Surgery Outpatient Referral Routine Avulsion fracture of distal fibula Expected: 10/15/2024 (Approximate), Expires: 10/15/2025 documented as of this encounter Visit Diagnoses Diagnosis Avulsion fracture of distal fibula- Primary documented in this encounter Additional Health Concerns Assessment Noted Time PHQ-9 Depression Total Score: 0 08/07/19 9:18 AM EST documented as of this encounter Care Teams Manager Infrastructure Relationship Specialty Start Date End Date Jessica Shoemaker MD [address] [place] [phone] PCP - General Family Medicine 08/07/24 documented as of this encounter
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
--- OUTSIDE RECORDS SUMMARY | 2024-10-16 06:58 | XMS_ITS | Encounter Summary ---
Author Organization [employer] Address [address] [facility] 7t [place] [address] Care Team Providers Care Contract Negotiator Name Role Phone Jessica Shoemaker MD Primary Care Provider [phone] Reason for Visit * Reason Onset Date Comments Durable Medical Equipment 10/08/2024 Encounter Details Date Type Department Care Team ([facility] st Contact Info) Description 10/08/2024 Telephone [facility] MEDICINE [address] [place] [address] Jessica Shoemaker MD [address] [place] [address] Durable Medical Equipment Social History Tobacco Use [...] documented as of this encounter Care Teams Contract Negotiator Relationship Specialty Start Date End Date Jessica Shoemaker MD [address] [place] [address] PCP - General Family Medicine 08/07/24 documented as of this encounter
--- NOTE | 2024-10-16 11:55 | HO.ANESPROP2 ---
HPI - Anesthesia Eval Consult details Narrative: ankle ORIF PMFSH Family History Family history of problems with anesthesia: No Surgical History History of Problems with Anesthesia: No Social History Social History Alcohol intake: never Advance Directives: No Advance Directives Information Provided: Yes Current occupational status: employed Current occupation: sub teacher/ [employer] Meds Allergies Allergy/AdvReac Type Severity Reaction Status Date / Time No Known Allergies Allergy Verified 10/06/24 03:42 Active Medications: Current Medications Cefazolin Sodium/Dextrose (Ancef) 2 gm in 50 mls @ 100 mls/hr IV PREOP ONE Stop: 10/16/24 12:06 Exam Height,Weight and Vital Signs: Height 5 ft 7 in Weight 95.254 kg Airway Mallampati Class: II TM Dist: >3cm Neck ROM: Full Heart: rrr Lungs: cta Assessment and Plan Assessment Anesthesia Assessment: Anesthesia Plan Discussed and Chart Reviewed Final Anesthetic Review Family History of Problems with Anesthesia: No History of Problems with Anesthesia: No NPO: Yes ASA Class: I Final Preanesthetic Review: No Changes in Pt Med Stat, Meds/Allgs Chart Reviewed, Consent Obtained/Reviewed and Anes Risks/Benef Reviewed Patient Risk: Low Procedure Risk: Low Anesthetic Plan Anesthetic Plan: GA and Regional Block Disposition: Standard PACU
[2024-10-16] MEDS: Lactated Ringers 1,000 ML 80 ML IVCONT (12:35)
[2024-10-16 13:32] LABS: HCG Quantitative < 2 mIU/mL
--- NOTE | 2024-10-16 13:55 | MHC.SHP ---
Pre-Procedural Eval Section A - 24 Hr Update-Section A only Date of Service: 10/16/24 The patient is an INPATIENT: No Changes since office visit: No Cold of Flu in the past 2 weeks, No New Medical Problems, No Changes in Medication and No Patient answered all questions The patient has been examined within 24 hours of the surgical procedure. The History & Physical has been completed within 30 days and I have reviewed it.: Yes Section B - Complete if H&P > 30 days Chief Complaint: Displaced bimalleolar fracture of left lower leg, Allergies: Allergies Allergy/AdvReac Type Severity Reaction Status Date / Time No Known Allergies Allergy Verified 10/06/24 03:42 Plan I have reviewed the history and physical and performed a pertinent physical examination on my patient. No changes have occurred unless specified. Time Spent With Patient Time: Total time managing care of this patient today ____ minutes.
--- NOTE | 2024-10-16 13:56 | PC.NURSE ---
report given to radha norman
[2024-10-16] MEDS: ceFAZolin Sodium/Dextrose,Iso 2 GM/50 ML PIGGYBACK IV (14:53)
[2024-10-16] MEDS: oxyCODONE HCl Immed Release 5 MG TABLET PO (16:38)
--- NOTE | 2024-10-18 17:18 | P.OP_ITS ---
Operative Note Operative Note Date of Service: 10/16/24 Narrative: Date of Service: 10/16/24 Pre-op diagnosis: Left ankle bimalleolar fracture Post-op diagnosis: same Procedure: ORIF medial malleolus, left ankle Implants: Styrker 4.0 x 36 cannulated screws x 2 Surgeon: Chase Eldridge MD Anesthesia: GETA and regional Was an Rn Registry used for this Procedure?: Yes Rn Registry: Flora Ayon Estimated blood loss (mL): 20 Tourniquet time (min): 25 IV fluids (mL): 600 Pathology: none sent Condition: stable Disposition: PACU Procedure in detail: Patient was brought to the operating room and placed supine on the operative table. All bony prominences were well padded and a time-out was called to identify proper site proper procedure proper surgeon. IV antibiotics per weight were administered. I began by exsanguinating limb is slightly tourniquet to 300 mm Hg. The transverse medial malleolar fracture was identified after oblique skin incision. Full-thickness skin flaps were developed and, with a sharp tenaculum, the fracture was reduced. 2 threaded K-wires were then placed from distal to proximal and perpendicular to the fracture. Biplanar fluoroscopy was used to confirm positioning and then they were overdrilled and 2 36 mm 4.0 partially-threaded cannulated cancellous screws were placed across the fracture. I was satisfied with the position and the fracture reduction based on biplanar fluoroscopy. This syndesmosis was tested using external rotation test and was found to be stable. There was a shearing Hammer a distal fibula fracture which did not require operative reduction. Therefore all instrumentation was removed and copious irrigation was performed. Absorbable suture and dmitry were used for closure and the patient was placed into sterile dressings and a well-padded posterior splint. Tourniquet was let down and the patient was extubated brought to recovery room in stable condition there were no known complications.
== END 2024-10-16 17:02 | disposition home or self-care (01) ==
LOC: HO.SSS 11:22
PROVIDERS: Anesthesiology; PCP General Practice; Visit Provider Orthopaedic Surgery
PROC: (CPT 27766; principal; 2024-10-16 15:30)
DX: S82.842A Displaced bimalleolar fracture of left lower leg, initial encounter for closed fracture (principal); S82.832A Other fracture of upper and lower end of left fibula, initial encounter for closed fracture; W13.4XXA Fall from, out of or through window, initial encounter; Y93.89 Activity, other specified; Y92.9 Unspecified place or not applicable; Y99.9 Unspecified external cause status; M25.572 Pain in left ankle and joints of left foot; Z79.1 Long term (current) use of non-steroidal anti-inflammatories (NSAID); Z79.899 Other long term (current) drug therapy; F10.129 Alcohol abuse with intoxication, unspecified
CPT/HCPCS: 27766; 36415; 84702; C1713; J0665; J0690; J1100; J2003; J2250; J2405; J2704; J3010

== ENCOUNTER → 2024-10-16 11:21 | Outpatient (BNV) | payer MEDICAID, SELFPAY | PROVIDERS: PCP General Practice; Visit Provider Orthopaedic Surgery | DX: S82.842A Displaced bimalleolar fracture of left lower leg, initial encounter for closed fracture (principal) | CPT/HCPCS: 27766 ==

== ENCOUNTER 2024-10-30 09:57 | Outpatient (REF) | payer MEDICAID, SELFPAY ==
--- NOTE | ~2024-10-30 | XR_ITS ---
EXAMINATION: XR ANKLE 3 OR MORE VIEWS LEFT HISTORY: M25.579 - Pain in unspecified ankle and joints of unspecified foot COMPARISON: Comparison is made with the prior examination dated 10/15/2024. FINDINGS: Three views of the left ankle are submitted. Osseous mineralization is normal. The interval since the prior study, the patient is status post internal fixation of the minimally displaced fracture of the medial malleolus with 2 cannulated screws. A fracture of the distal fibula demonstrates mild callus formation consistent with healing. Again seen is a nondisplaced fracture of the lateral aspect of the talar dome. The joint spaces are preserved. The soft tissues are unremarkable. XR/XR ankle LT min 3V IMPRESSION: 1. Internal fixation of the previously seen minimally displaced fracture of the medial malleolus. 2. Healing fracture of the distal fibula. 3. Nondisplaced fracture of the lateral aspect of the talar dome without change. Electronically signed by: Bill Rocha MD 11/01/2024 08:17 AM EDT
--- OUTSIDE RECORDS SUMMARY | 2024-10-31 10:55 | XMS_ITS | Encounter Summary ---
Author Organization [employer] [facility] [employer] Address [address] [facility] 7[address] [place] [address] Care Team Providers Care Die Maker Apprentice Name Role Phone Jessica Shoemaker MD Primary Care Provider [phone] Reason for Referral * Consultation (Routine) - Closed Specialty Diagnoses / Procedures Referred By Kandy estrada Referred To Contact Orthopaedic Surgery Diagnoses Avulsion fracture of distal fibula Jessica Shoemaker MD [address] [place] [address] Phone: tel: fax: [address] [place] [address] Phone: tel: fax: Referral ID Status Reason Start Date Expiration Date V isits Requested Visits Authorized [id number] Closed Specialty Services Required 10/15/2024 10/15/2025 6 6 * Consultation (Urgent) - Authorized Specialty Diagnoses / Procedures Referred By Kandy estrada Referred To Contact Orthopaedic Surgery Diagnoses Avulsion fracture of distal fibula Jessica Shoemaker MD [address] [place] [address] Phone: tel: fax: [place] [address] [place] [address] Phone: tel: fax: Referral ID Status Reason Start Date Expiration Date Visits Requested Visits Authorized [id number] Authorized Specialty Services Required 10/09/2024 10/09/2025 6 6 Encounter Details Date Type Department Care Team (Late st Contact Info) Description 10/09/2024 Orders Only [facility] [address] [facility] [address] Jessica Shoemaker MD [address] [place] [address] Avulsion fracture of distal fibula (Primary Dx) [...] EDT Narrative 10/17/2024 7:15 AM EDT ? [facility] ?[address] ?[place] [address] ? Fluoroscopy Report ? Signed ? Patient: Dahiana Roche ?MR#: [id number] ?? 608 ? : 2005 ?Acct:[id number] ? Age/Sex: 19 / F ?ADM Date: 10/16/24 ? Loc: HO.SSS ? Attending Dr: Chase Eldridge MD ? Ordering Physician: Chase Eldridge MD ?? Date of Service: 10/16/24 ?? Procedure(s): FL guidance in OR ?? Accession Number(s): [id number] ? cc: Chase Eldridge MD; Jessica Shoemaker ? EXAMINATION: ??FL GUIDANCE ONLY ? HISTORY: fracture left ankle ? COMPARISON: ?? Correlation is made with plain films of the left ankle dated 10/15/2024. ? TECHNIQUE: ?? Fluoroscopy time: 0.1 minutes. ?? Cumulative Dose: 0.310 mGy. ?? DAP: 0.36531 mGym2 ?? Images: 2. ? FINDINGS: ?? [...] DD/ 1555 ? TD/TT: 10/16/24 1555 ? Automotive Service Consultant: ? Procedure Note Gustabokorinarmenbruno, Image - 10/17/2024 [place] [address] Fluoroscopy Report Signed Patient: Darell RocheR#: [id number] 608 : 2005Acct:[id number] Age/Sex: 19 M Date: 10/16/24 Loc: HO.[facility] Attending Dr: Chase Eldridge MD Ordering Physician: Chase Eldridge MD Date of Service: 10/16/24 Procedure(s): FL guidance in OR Accession Number(s): [id number] cc: Chase Eldridge MD; Jessica Shoemaker EXAMINATION: FL GUIDANCE ONLY HISTORY: fracture left ankle COMPARISON: Correlation is made with plain films of the left ankle dated 10/15/2024. TECHNIQUE: Fluoroscopy time: 0.1 minutes. Cumulative Dose: 0.310 mGy. DAP: 0.12615 mGym2 Images: 2. FINDINGS: Images demonstrate internal [...] in OV> 10/17/2413 DD/ 54 TD/TT: 10/16/241554 Automotive Service Consultant: [facility] External Provider IMG IR PROCEDURES Final Result * hCG, Total, Quantitative (10/16/2024 12:53 PM EDT) HCG Quantitative <2 mIU/mL [facility] Comment:Weeks post LMP Appr oximate hCG(Last Menstrual Period) Range (mIU/ml)3 - 4 weeks 9 - 1304 - 5 weeks 75 - 2,6005 - 6 weeks 850 - 20,8006 - 7 weeks 4000 - 100,2007 - 12 weeks 11,500 - 289,15706 - 16 weeks 18,300 - 137,79576 - 29 weeks (2nd trimester) 1,400 - 53,27047 - 41 weeks (3rd trimester) 940 - [...] Provider LAB BLOOD ORDERAB LES Final Result [facility] [address] [place] [phone] * XR Ankle 3+ Views Left (10/15/2024 11:47 AM EDT) Anatomical Region Laterality Modality Lower Extremities, Ankle Left Radiogr aphic Imaging 10/15/2024 11:4 7 AM EDT Narrative 10/16/2024 8:11 AM EDT ? [facility] ? [address] ?[place] [address] ?XRay Report ? Signed ? Patient: Roche,Jesnelly ?MR#: [id number] ?? 608 ? : 2005 ?Acct:[id number] ? Age/Sex: 19 / F ?ADM Date: 10/15/24 ? Loc: HO.HOSX ? Attending Dr: Flora Ayon PA-C ? Ordering Physician: Flora Ayon PA-C ?? Date of Service: 10/15/24 ?? Procedure(s): XR ankle LT min 3V ?? Accession Number(s): [id number] ? cc: Jessica Shoemaker; Flora Ayon PA-C [...] DD/ 1147 ? TD/TT: 10/15/24 1157 ? Automotive Service Consultant: ? Procedure Note Giana Guillen - 10/16/2024 [facility] [address] [place] [address] XRay Report Signed Patient: Darell RocheR#: [id number] 608 : 2005Acct:[id number] Age/Sex: 19 / FADM Date: 10/15/24 Loc: ENIONilaALONZO Attending Dr: Flora Ayon PA-C Ordering Physician: Flora Ayon PA-C Date of Service: 10/15/24 Procedure(s): XR ankle LT min 3V Accession Number(s): [id number] cc: Jessica Shoemaker; Flora Ayon PA-C EXAMINATION: [...] 10/16/24 0808 DD/ 1147 TD/TT: 10/15/24 1157 Automotive Service Consultant: [facility] External Provider IMG XR PROCEDURES Final Result documented in this encounter Visit Diagnoses Diagnosis Avulsion fracture of distal fibula- Primary documented in this encounter Additional Health Concerns Assessment Noted Time PHQ-9 Depression Total Score: 0 08/07/19 25 9:18 AM EST documented as of this encounter Care Teams Die Maker Apprentice Relationship Specialty Start Date End Date Jessica Shoemaker MD [address] [place] [address] PCP - General Family Medicine 08/07/24 documented as of this encounter
--- OUTSIDE RECORDS SUMMARY | 2024-10-31 10:55 | XMS_ITS | Encounter Summary ---
Author Organization [employer] Address [address] [facility] 7t [place] [address] Care Team Providers Care Welder Pipe Making Name Role Phone Jessica Shoemaker MD Primary Care Provider [phone] Reason for Visit * Reason Onset Date Comments Durable Medical Equipment 10/19/2024 Encounter Details Date Type Department Care Team ([facility] st Contact Info) Description 10/19/2024 Telephone [facility] [address] [place], [place] [phone] Jessica Shoemaker MD [address] [place] [address] Durable Medical Equipment Social History Tobacco Use [...] encounter Miscellaneous Notes * Telephone Encounter - Mitzy Carlson - 10/30/2024 2:59 PM EDT Order was Faxed to [employer] on 10/26/24. * Telephone Encounter - Macarena Walters - 10/19/2024 9:18 AM EDT Tc from mom requesting DME RX to be faxed to [employer] Shower Bench Commode Scooter documented in this encounter Plan of Treatment Not on file documented as of this encounter Visit Diagnoses Not on filedocumented in this encounter Additional Health Concerns Assessment Noted Time PHQ-9 Depression Total Score: 0 08/07/19 9:18 AM EST documented as of this encounter Care Teams Welder Pipe Making Relationship Specialty Start Date End Date Jessica Shoemaker MD [address] [place] [phone] PCP - General Family Medicine 08/07/24 documented as of this encounter
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
== END 2024-10-30 09:58 | disposition home or self-care (01) ==
LOC: HO.HOSX 09:57
PROVIDERS: Visit Provider Physician Assistant
DX: Z48.02 Encounter for removal of sutures (principal); M25.572 Pain in left ankle and joints of left foot; S82.52XD Displaced fracture of medial malleolus of left tibia, subsequent encounter for closed fracture with routine healing; S82.832D Other fracture of upper and lower end of left fibula, subsequent encounter for closed fracture with routine healing; S92.145D Nondisplaced dome fracture of left talus, subsequent encounter for fracture with routine healing; Z96.89 Presence of other specified functional implants
CPT/HCPCS: 29405; 73610; 99212

== ENCOUNTER 2024-10-30 12:44 | Outpatient (AMB) | payer MEDICAID, SELFPAY ==
--- NOTE | 2024-10-30 12:55 | MHC.OFFVIS ---
Intake Visit Reasons: PO-Lt Ankle ORIF 10/16/24 Intake Note: Dahiana is a 19 year old female who presents today without cruthces for a post operative left ankle ORIF, DOS 10/16/24. Patient reports she is doing well. Having discomfort around her ankle. Allergies No Known Allergies Allergy (Verified 10/30/24 13:01) HPI HPI PO-Lt Ankle ORIF 10/16/24: Details: Ms. Roche is a 19 yo female who presents to the office today s/p left ankle ORIF performed by Dr. Callaway on 10/16/24. She presents to the office today without her splint and weightbearing as tolerated on her tip toes. She is ambulating without crutches. [facility] Surgical History (Updated 10/30/24 @ 15:35 by Jennifer Marrero PA-C) History of appendectomy Social History Alcohol intake: never Patient Tobacco Use Status: Never used Tobacco Current occupational status: employed Current occupation: sub teacher/ rt hand Review of Systems Const All systems reviewed & are unremarkable except as noted in HPI and below Physical Exam Const General: cooperative, healthy appearing and no acute distress Resp Effort & Inspection: normal respiratory effort and able to speak in complete sentences Extrem Other: Left ankle incision site is c/d/i. No surrounding erythema or drainage. No signs of infection. Able to dorsiflex and plantar flex. Sensation is intact. Pedal pulse intact. Office Procedures Casting/Splints 05727-Umkcr Leg Cast Application Procedure code (CPT) selection complete Assessment & Plan Assessment & Plan (1) Status post ORIF of fracture of ankle: Code(s): Z98.890 - Other specified postprocedural states; Z87.81 - Personal history of (healed) traumatic fracture Category: Surgical Plan While in the office today, dmitry were removed and Steri-Strips are applied. Patient was educated on the importance of nonweightbearing on the left lower extremity and the potential for hardware failure and/or further displacement of the fracture site and complications involving healing. Patient became tearful in the office and demonstrated understanding. She was placed into a short-leg cast and instructed again not to weightbear. Crutches were supplied to the patient while in the office today. A knee scooter was previously ordered for the patient we will follow up on the status of this. She will follow up in 4 weeks, sooner if needed with cast off and repeat x-rays. X-rays of the left ankle which were obtained while in the office today and were reviewed by me, Jennifer Marrero PA-C, revealed intact orthopedic hardware with routine healing. Orders: Orders XR ankle LT min 3V Today M25.579 - Pain in unspecified ankle and joints of unspecified foot Coding Level of Care Code Global (07962) Diagnoses Status post ORIF of fracture of ankle Z98.890; Z87.81 CPT Codes Casting - CPT: 44478-Jhtvz Leg Cast Application ([id number])
--- OUTSIDE RECORDS SUMMARY | 2024-10-30 14:35 | XMS_ITS | Encounter Summary ---
Author Organization [employer] [facility] Address [address] [place] [address] Care Team Providers Care Technology Lab Teacher Name Role Phone Jessica Shoemaker MD Primary Care Provider [phone] Reason for Referral * Consultation (Routine) - Closed Specialty Diagnoses / Procedures Referred By Kandy estrada Referred To Contact Orthopaedic Surgery Diagnoses Avulsion fracture of distal fibula Jessica Shoemaker MD [address] [place] [address] Phone: tel: fax: [address] [place] [address] Phone: tel: fax: Referral ID Status Reason Start Date Expiration Date V isits Requested Visits Authorized [id number] Closed Specialty Services Required 10/15/2024 10/15/2025 6 6 * Consultation (Urgent) - Authorized Specialty Diagnoses / Procedures Referred By Kandy estrada Referred To Contact Orthopaedic Surgery Diagnoses Avulsion fracture of distal fibula Jessica Shoemaker MD [address] [place] [address] Phone: tel: fax: [place] [address] [place] [address] Phone: tel: fax: Referral ID Status Reason Start Date Expiration Date Visits Requested Visits Authorized [id number] Authorized Specialty Services Required 10/09/2024 10/09/2025 6 6 Encounter Details Date Type Department Care Team (Late st Contact Info) Description 10/09/2024 Orders Only [facility] [address] [facility] [place] [address] Jessica Shoemaker MD [address] [place] [address] Avulsion fracture of distal fibula (Primary Dx) [...] Expires: 10/15/2025 documented as of this encounter Procedures Procedure Name Priority Date/Time Associated Diagnosis Comments FL GUIDANCE IN OR Routine 10/16/2024 3:5 5 PM EDT HCG, TOTAL, QN Routine 10/16/2024 12:53 PM EDT Avulsion fracture of distal fibula XR ANKLE 3+ VIEWS LEFT Routine 10/15/2024 11:47 AM EDT documented in this encounter Results * FL Guidance in OR (10/16/2024 3:55 PM EDT) Anatomical Region Laterality Modality X-Ray Angiograph y 10/16/2024 3:55 PM EDT Narrative 10/17/2024 7:15 AM EDT ? [facility] ?[address] ?[place] [address] ? Fluoroscopy Report ? Signed ? Patient: Dahiana Roche ?MR#: [id number] ?? 608 ? : 2005 ?Acct:[id number] ? Age/Sex: 19 / F ?ADM Date: 10/16/24 ? Loc: HO.SSS ? Attending Dr: Chase Eldridge MD ? Ordering Physician: Chase Eldridge MD ?? Date of Service: 10/16/24 ?? Procedure(s): FL guidance in OR ?? Accession Number(s): [id number] ? cc: Chase Eldridge MD; Jessica Shoemaker ? EXAMINATION: ??FL GUIDANCE ONLY ? HISTORY: fracture left ankle ? COMPARISON: ?? Correlation is made with plain films of the left ankle dated 10/15/2024. ? TECHNIQUE: ?? Fluoroscopy time: 0.1 minutes. ?? Cumulative Dose: 0.310 mGy. ?? DAP: 0.56580 mGym2 ?? Images: 2. ? FINDINGS: ?? Images demonstrate internal fixation of the previously noted fracture ?? of the medial malleolus with two screws. A minimally displaced distal ?? fibular fracture is again noted. The previously seen fracture of the ?? lateral aspect of the talar dome is not well visualized on these ?? images. ? FL/FL guidance in OR ?? IMPRESSION: ?? Fluoroscopy during procedure. Please see procedure report for ?? additional information. ? Electronically signed by: ??Bill Rocha MD ??10/17/2024 07:13 AM EDT ? Dictated By: ?Bill Rocha MD ? Signed By: ?<Electronically signed by Bill Rocha MD in OV> ?10/17/24 0713 ? DD/ 1555 ? TD/TT: 10/16/24 1555 ? Waste Disposal Attendant: ? Procedure Note Gustabokorinarmenbruno, Image - 10/17/2024 [place] [address] Fluoroscopy Report Signed Patient: Darell RocheR#: [id number] 608 : 2005Acct:[id number] Age/Sex: 19 M Date: 10/16/24 Loc: HO.[facility] Attending Dr: Chase Eldridge MD Ordering Physician: Chase Eldridge MD Date of Service: 10/16/24 Procedure(s): FL guidance in OR Accession Number(s): [id number] cc: Chase Eldridge MD; Jessica Shoemaker EXAMINATION: FL GUIDANCE ONLY HISTORY: fracture left ankle COMPARISON: Correlation is made with plain films of the left ankle dated 10/15/2024. TECHNIQUE: Fluoroscopy time: 0.1 minutes. Cumulative Dose: 0.310 mGy. DAP: 0.27588 mGym2 Images: 2. FINDINGS: Images demonstrate internal fixation of the previously noted fracture of the medial malleolus with two screws. A minimally displaced distal fibular fracture is again noted. The previously seen fracture of the lateral aspect of the talar dome is not well visualized on these images. FL/FL guidance in OR IMPRESSION: Fluoroscopy during procedure. Please see procedure report for additional information. Electronically signed by: Bill Rocha MD 10/17/2024 07:13 AM EDT RP Dictated By: Bill Rocha MD Signed By: <Electronically signed by Bill Rocha MD in OV> 10/17/2413 DD/ 54 TD/TT: 10/16/241554 Waste Disposal Attendant: [facility] External Provider IMG IR PROCEDURES Final Result * hCG, Total, Quantitative (10/16/2024 12:53 PM EDT) HCG Quantitative <2 mIU/mL [facility] Comment:Weeks post LMP Appr oximate hCG(Last Menstrual Period) Range (mIU/ml)3 - 4 weeks 9 - 1304 - 5 weeks 75 - 2,6005 - 6 weeks 850 - 20,8006 - 7 weeks 4000 - 100,2007 - 12 weeks 11,500 - 289,07824 - 16 weeks 18,300 - 137,48125 - 29 weeks (2nd trimester) 1,400 - 53,39661 - 41 weeks (3rd trimester) 940 - 60,000The Cabrera B-hCG assay is used for the early detection ofpregnancy; it cannot be used to diagnose any conditionunrelated to . If a B-hCG level is not supportedby the clinical evidence, results should be confirmed by analternative method (qualitative urine hCG, for example). 10/16/2024 12:5 3 PM EDT 10/16/2024 1:05 PM EDT Generic External Data Provider LAB BLOOD ORDERAB LES Final Result [facility] [address] [place] [phone] * XR Ankle 3+ Views Left (10/15/2024 11:47 AM EDT) Anatomical Region Laterality Modality Lower Extremities, Ankle Left Radiogr aphic Imaging 10/15/2024 11:4 7 AM EDT Narrative 10/16/2024 8:11 AM EDT ? [facility] ? [address] ?[place] [address] ?XRay Report ? Signed ? Patient: Roche,Jesnelly ?MR#: [id number] ?? 608 ? : 2005 ?Acct:[id number] ? Age/Sex: 19 / F ?ADM Date: 10/15/24 ? Loc: HO.HOSX ? Attending Dr: Flora Ayon PA-C ? Ordering Physician: Flora Ayon PA-C ?? Date of Service: 10/15/24 ?? Procedure(s): XR ankle LT min 3V ?? Accession Number(s): [id number] ? cc: Jessica Shoemaker; Flora Ayon PA-C ? EXAMINATION: ??XR ANKLE 3 OR MORE VIEWS LEFT ? HISTORY: M25.572 - Pain in left ankle and joints of left foot ? COMPARISON: Comparison is made with the prior examination dated ?? 10/06/2024. ? FINDINGS: ? Three views of the left ankle are submitted. ??Osseous mineralization is ?? normal. ??Again seen is a minimally displaced fracture of the medial ?? malleolus and a nondisplaced fracture of the distal fibula. In ?? addition, there is a nondisplaced fracture of the lateral aspect of the ?? talar dome. The appearance is not significantly changed from the prior ?? study. ??The joint spaces are preserved. ??The soft tissues are ?? unremarkable. ? XR/XR ankle LT min 3V ?? IMPRESSION: ? 1. Minimally displaced fracture of the medial malleolus and ?? nondisplaced fracture of the distal fibula without change. ? 2. Nondisplaced fracture of the lateral aspect of the talar dome, also ?? without change. ? Electronically signed by: ??Bill Rocha MD ??10/16/2024 08:08 AM EDT ?? RP ? Dictated By: ?Bill Rocha MD ? Signed By: ?<Electronically signed by Bill Rocha MD in OV> ?10/16/24 0808 ? DD/ 1147 ? TD/TT: 10/15/24 1157 ? Waste Disposal Attendant: ? Procedure Note Giana Guillen - 10/16/2024 [facility] [address] [place] [address] XRay Report Signed Patient: Darell RocheR#: [id number] 608 : 2005Acct:[id number] Age/Sex: 19 / FADM Date: 10/15/24 Loc: [facility] Attending Dr: Flora Ayon PA-C Ordering Physician: Flora Ayon PA-C Date of Service: 10/15/24 Procedure(s): XR ankle LT min 3V Accession Number(s): [id number] cc: Jessica Shoemaker; Flora Ayon PA-C EXAMINATION: XR ANKLE 3 OR MORE VIEWS LEFT HISTORY: M25.572 - Pain in left ankle and joints of left foot COMPARISON: Comparison is made with the prior examination dated 10/06/2024. FINDINGS: Three views of the left ankle are submitted. Osseous mineralization is normal. Again seen is a minimally displaced fracture of the medial malleolus and a nondisplaced fracture of the distal fibula. In addition, there is a nondisplaced fracture of the lateral aspect of the talar dome. The appearance is not significantly changed from the prior study. The joint spaces are preserved. The soft tissues are unremarkable. XR/XR ankle LT min 3V IMPRESSION: 1. Minimally displaced fracture of the medial malleolus and nondisplaced fracture of the distal fibula without change. 2. Nondisplaced fracture of the lateral aspect of the talar dome, also without change. Electronically signed by: Bill Rocha MD 10/16/2024 08:08 AM EDT Dictated By: Bill Rocha MD Signed By: <Electronically signed by Bill Rocha MD in OV> 10/16/24 0808 DD/ 1147 TD/TT: 10/15/24 1157 Waste Disposal Attendant: [facility] External Provider IMG XR PROCEDURES Final Result documented in this encounter Visit Diagnoses Diagnosis Avulsion fracture of distal fibula- Primary documented in this encounter Additional Health Concerns Assessment Noted Time PHQ-9 Depression Total Score: 0 08/07/19 25 9:18 AM EST documented as of this encounter Care Teams Technology Lab Teacher Relationship Specialty Start Date End Date Jessica Shoemaker MD [address] [place] [address] PCP - General Family Medicine 08/07/24 documented as of this encounter
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
--- OUTSIDE RECORDS SUMMARY | 2024-10-30 14:35 | XMS_ITS | Encounter Summary ---
Author Organization [employer] Address [address] [facility] 7t [place] [address] Care Team Providers Care Retoucher Name Role Phone eJssica Shoemaker MD Primary Care Provider [phone] Reason for Visit * Reason Onset Date Comments Durable Medical Equipment 10/19/2024 Encounter Details Date Type Department Care Team ([facility] st Contact Info) Description 10/19/2024 Telephone [facility] [address] [place], [place] [phone] Jessica Shoemaker MD [address] [place] [address] Durable Medical Equipment Social History Tobacco Use [...] encounter Miscellaneous Notes * Telephone Encounter - Macarena Walters - 10/19/2024 9:18 AM EDT Tc from mom requesting DME RX to be faxed to [employer] Shower Bench Commode Scooter documented in this encounter Plan of Treatment Not on file documented as of this encounter Visit Diagnoses Not on filedocumented in this encounter Additional Health Concerns Assessment Noted Time PHQ-9 Depression Total Score: 0 08/07/19 9:18 AM EST documented as of this encounter Care Teams Retoucher Relationship Specialty Start Date End Date Jessica Shoemaker MD [address] [place] [address] PCP - General Family Medicine 08/07/24 documented as of this encounter
== END 2024-10-30 14:01 | disposition home or self-care (01) ==
LOC: HO.HOS 12:45
PROVIDERS: PCP General Practice; Visit Provider Physician Assistant
DX: S82.832D Other fracture of upper and lower end of left fibula, subsequent encounter for closed fracture with routine healing (principal); S82.53XD Displaced fracture of medial malleolus of unspecified tibia, subsequent encounter for closed fracture with routine healing
CPT/HCPCS: 29405; 99024

== ENCOUNTER → 2024-10-30 12:46 | Outpatient (BNV) | payer MEDICAID, SELFPAY | PROVIDERS: Visit Provider Radiology Diagnostic Radiology | DX: M25.572 Pain in left ankle and joints of left foot (principal); S82.832D Other fracture of upper and lower end of left fibula, subsequent encounter for closed fracture with routine healing; S82.52XD Displaced fracture of medial malleolus of left tibia, subsequent encounter for closed fracture with routine healing | CPT/HCPCS: 73610 ==

== ENCOUNTER 2024-11-30 08:38 | Outpatient (REF) | payer MEDICAID, SELFPAY ==
--- NOTE | ~2024-11-30 | XR_ITS ---
CLINICAL HISTORY: M25.579 - Pain in unspecified ankle and joints of unspecified foot 3 views left ankle Comparison: CR - XR ANKLE LT 2V - 10/06/24 04:01 EDT Findings: Two screws transfixing the medial malleolus. Callus formation of the distal fibula. No joint effusion. No significant arthritic change. No radiopaque foreign body. There is soft tissue edema. Impression: Open reduction internal fixation of the medial malleolus fracture. Healing fracture of the distal fibula. This document has been electronically signed by: Marleny Mg MD on 12/07/2024 15:34:34
--- OUTSIDE RECORDS SUMMARY | 2024-12-03 08:56 | XMS_ITS | Encounter Summary ---
Author Organization [employer] Address [address] [facility] 7t [place] [address] Care Team Providers Care Fret Saw Operator Name Role Phone Jessica Shoemaker MD Primary Care Provider [phone] Reason for Referral * Consultation (Routine) - Closed Specialty Diagnoses / Procedures Referred By Kandy estrada Referred To Contact Orthopaedic Surgery Diagnoses Avulsion fracture of distal fibula Jessica Shoemaker MD [address] [place] [address] Phone: tel: fax: [address] [place] [address] Phone: tel: fax: Referral ID Status Reason Start Date Expiration Date V isits Requested Visits Authorized [id number] Closed Specialty Services Required 10/15/2024 10/15/2025 6 6 * Consultation (Urgent) - Authorized Specialty Diagnoses / Procedures Referred By Kandy estrada Referred To Contact Orthopaedic Surgery Diagnoses Avulsion fracture of distal fibula Jessica Shoemaker MD [address] [place], [place] Phone: tel: fax: [place] [address] [place] [address] Phone: tel: fax: Referral ID Status Reason Start Date Expiration Date Visits Requested Visits Authorized [id number] Authorized Specialty Services Required 10/09/2024 10/09/2025 6 6 Encounter Details Date Type Department Care Team (Late st Contact Info) Description 10/09/2024 Orders Only [facility] [address] [facility] [place] [address] Jessica Shoemaker MD [address] [place] [address] Avulsion fracture of distal fibula (Primary Dx) [...] EDT Narrative 10/17/2024 7:15 AM EDT ? [facility] ?[address] ?[place] [address] ? Fluoroscopy Report ? Signed ? Patient: Dahiana Roche ?MR#: [id number] ?? 608 ? : 2005 ?Acct:[id number] ? Age/Sex: 19 / F ?ADM Date: 10/16/24 ? Loc: HO.SSS ? Attending Dr: Chase Eldridge MD ? Ordering Physician: Chase Eldridge MD ?? Date of Service: 10/16/24 ?? Procedure(s): FL guidance in OR ?? Accession Number(s): [id number] ? cc: Chase Eldridge MD; Navid,Jessica ? EXAMINATION: ??FL GUIDANCE ONLY ? HISTORY: fracture left ankle ? COMPARISON: ?? Correlation is made with plain films of the left ankle dated 10/15/2024. ? TECHNIQUE: ?? Fluoroscopy time: 0.1 minutes. ?? Cumulative Dose: 0.310 mGy. ?? DAP: 0.83510 mGym2 ?? Images: 2. ? FINDINGS: ?? [...] DD/ 1555 ? TD/TT: 10/16/24 1555 ? Jump[employer] Canvas Baster: ? Procedure Note Wilmer, Image - 10/17/2024 [place] [address] Fluoroscopy Report Signed Patient: Chayito Roche#: [id number] 608 : 2005Acct:[id number] Age/Sex: Date: 10/16/24 [facility]: [facility] Attending Dr: Chase Eldridge MD Ordering Physician: Chase Eldridge MD Date of Service: 10/16/24 Procedure(s): FL guidance in OR Accession Number(s): [id number] cc: Chsae Eldridge MD; Jessica Shoemaker EXAMINATION: FL GUIDANCE ONLY HISTORY: fracture left ankle COMPARISON: Correlation is made with plain films of the left ankle dated 10/15/2024. TECHNIQUE: Fluoroscopy time: 0.1 minutes. Cumulative Dose: 0.310 mGy. DAP: 0.60859 mGym2 Images: 2. FINDINGS: Images demonstrate internal [...] in OV> 10/17/2413 DD/ 54 TD/TT: 10/16/241554 Jumpbasting Canvas Baster: [facility] External Provider IMG IR PROCEDURES Final Result * hCG, Total, Quantitative (10/16/2024 12:53 PM EDT) HCG Quantitative <2 mIU/mL [facility] Comment:Weeks post LMP Appro ximate hCG(Last Menstrual Period) Range (mIU/ml)3 - 4 weeks 9 - 1304 - 5 weeks 75 - 2,6005 - 6 weeks 850 - 20,8006 - 7 weeks 4000 - 100,2007 - 12 weeks 11,500 - 289,66617 - 16 weeks 18,300 - 137,42435 - 29 weeks (2nd trimester) 1,400 - 53,96320 - 41 weeks (3rd trimester) 940 - [...] Provider LAB BLOOD ORDERAB LES Final Result [facility] [address] [place] [phone] * XR Ankle 3+ Views Left (10/15/2024 11:47 AM EDT) Anatomical Region Laterality Modality Lower Extremities, Ankle Left Radiogr aphic Imaging 10/15/2024 11:4 7 AM EDT Narrative 10/16/2024 8:11 AM EDT ? [facility] ? [address] ?[place] [address] ?XRay Report ? Signed ? Patient: Roche,Jesnelly ?MR#: [id number] ?? 608 ? : 2005 ?Acct:[id number] ? Age/Sex: 19 / F ?ADM Date: 10/15/24 ? Loc: HO.HOSX ? Attending Dr: Flora Ayon PA-C ? Ordering Physician: Flora Ayon PA-C ?? Date of Service: 10/15/24 ?? Procedure(s): XR ankle LT min 3V ?? Accession Number(s): [id number] ? cc: Jessica Shoemaker; Flora Ayon PA-C [...] DD/ 1147 ? TD/TT: 10/15/24 1157 ? [employer]aster: ? Procedure Note Wilmer, Giana - 10/16/2024 [facility] [address] [place] [address] XRay Report Signed Patient: Darell RocheR#: [id number] 608 : 2005Acct:[id number] Age/Sex: 19 / FADM Date: 10/15/24 Loc: [facility] Attending Dr: Flora Ayon PA-C Ordering Physician: Flora Ayon PA-C Date of Service: 10/15/24 Procedure(s): XR ankle LT min 3V Accession Number(s): [id number] cc: Jessica Shoemaker; Flora Ayon PA-C EXAMINATION: [...] 10/16/24 0808 DD/ 1147 TD/TT: 10/15/24 1157 [employer] [facility]aster: [facility] External Provider IMG XR PROCEDURES Final Result documented in this encounter Visit Diagnoses Diagnosis Avulsion fracture of distal fibula- Primary documented in this encounter Additional Health Concerns Assessment Noted Time PHQ-9 Depression Total Score: 0 08/07/19 9:18 AM EST documented as of this encounter Care Teams Fret Saw Operator Relationship Specialty Start Date End Date Jessica Shoemaker MD [address] [place] [address] PCP - General Family Medicine 08/07/24 documented as of this encounter
== END 2024-11-30 08:39 | disposition home or self-care (01) ==
LOC: HO.HOSX 08:38
PROVIDERS: Visit Provider Physician Assistant
DX: M25.572 Pain in left ankle and joints of left foot (principal); Z98.890 Other specified postprocedural states; Z87.81 Personal history of (healed) traumatic fracture
CPT/HCPCS: 73610; 99212

== ENCOUNTER 2024-11-30 14:21 | Outpatient (AMB) | payer MEDICAID, SELFPAY ==
--- OUTSIDE RECORDS SUMMARY | 2024-11-30 14:24 | XMS_ITS | Encounter Summary ---
Author Organization [employer] Address [address] [facility] 7t [place] [address] Care Team Providers Care Emt/Paramedic Name Role Phone Jessica Shoemaker MD Primary Care Provider [phone] Reason for Referral * Consultation (Routine) - Closed Specialty Diagnoses / Procedures Referred By Kandy estrada Referred To Contact Orthopaedic Surgery Diagnoses Avulsion fracture of distal fibula Jessica Shoemaker MD [address] [place] [address] Phone: tel: fax: [address] [place] [address] Phone: tel: fax: Referral ID Status Reason Start Date Expiration Date V isits Requested Visits Authorized [id number] Closed Specialty Services Required 10/15/2024 10/15/2025 6 6 * Consultation (Urgent) - Authorized Specialty Diagnoses / Procedures Referred By Kandy estrada Referred To Contact Orthopaedic Surgery Diagnoses Avulsion fracture of distal fibula Jessica Shoemaker MD [address] [place], [place] Phone: tel: fax: [place] [address] [place] [address] Phone: tel: fax: Referral ID Status Reason Start Date Expiration Date Visits Requested Visits Authorized [id number] Authorized Specialty Services Required 10/09/2024 10/09/2025 6 6 Encounter Details Date Type Department Care Team (Late st Contact Info) Description 10/09/2024 Orders Only [facility] [address] [place] [address] Jessica Shoemaker MD [address] [place] [address] Avulsion fracture of distal fibula (Primary Dx) [...] EDT Narrative 10/17/2024 7:15 AM EDT ? [facility] ?[address] ?[place] [address] ? Fluoroscopy Report ? Signed ? Patient: Dahiana Roche ?MR#: [id number] ?? 608 ? : 2005 ?Acct:[id number] ? Age/Sex: 19 / F ?ADM Date: 10/16/24 ? Loc: HO.SSS ? Attending Dr: Chase Eldridge MD ? Ordering Physician: Chase Eldridge MD ?? Date of Service: 10/16/24 ?? Procedure(s): FL guidance in OR ?? Accession Number(s): [id number] ? cc: Chase Eldridge MD; Navid,Jessica ? EXAMINATION: ??FL GUIDANCE ONLY ? HISTORY: fracture left ankle ? COMPARISON: ?? Correlation is made with plain films of the left ankle dated 10/15/2024. ? TECHNIQUE: ?? Fluoroscopy time: 0.1 minutes. ?? Cumulative Dose: 0.310 mGy. ?? DAP: 0.70145 mGym2 ?? Images: 2. ? FINDINGS: ?? [...] DD/ 1555 ? TD/TT: 10/16/24 1555 ? Nurses' Registry Director: ? Procedure Note Wilmer, Image - 10/17/2024 [place] [address] Fluoroscopy Report Signed Patient: Chayito Roche#: [id number] 608 : 2005Acct:[id number] Age/Sex: Date: 10/16/24 Loc: HO.[facility] Attending Dr: Chase Eldridge MD Ordering Physician: Chase Eldridge MD Date of Service: 10/16/24 Procedure(s): FL guidance in OR Accession Number(s): [id number] cc: Chase Eldridge MD; Jessica Shoemaker EXAMINATION: FL GUIDANCE ONLY HISTORY: fracture left ankle COMPARISON: Correlation is made with plain films of the left ankle dated 10/15/2024. TECHNIQUE: Fluoroscopy time: 0.1 minutes. Cumulative Dose: 0.310 mGy. DAP: 0.02203 mGym2 Images: 2. FINDINGS: Images demonstrate internal [...] in OV> 10/17/2413 DD/ 54 TD/TT: 10/16/241554 Nurses' Registry Director: [facility] External Provider IMG IR PROCEDURES Final Result * hCG, Total, Quantitative (10/16/2024 12:53 PM EDT) HCG Quantitative <2 mIU/mL [facility] Comment:Weeks post LMP Appro ximate hCG(Last Menstrual Period) Range (mIU/ml)3 - 4 weeks 9 - 1304 - 5 weeks 75 - 2,6005 - 6 weeks 850 - 20,8006 - 7 weeks 4000 - 100,2007 - 12 weeks 11,500 - 289,56800 - 16 weeks 18,300 - 137,05989 - 29 weeks (2nd trimester) 1,400 - 53,69422 - 41 weeks (3rd trimester) 940 - [...] Provider LAB BLOOD ORDERAB LES Final Result [facility] [address] [place] [phone] * XR Ankle 3+ Views Left (10/15/2024 11:47 AM EDT) Anatomical Region Laterality Modality Lower Extremities, Ankle Left Radiogr aphic Imaging 10/15/2024 11:4 7 AM EDT Narrative 10/16/2024 8:11 AM EDT ? [facility] ? [address] ?[place] [address] ?XRay Report ? Signed ? Patient: Roche,Jesnelly ?MR#: [id number] ?? 608 ? : 2005 ?Acct:[id number] ? Age/Sex: 19 / F ?ADM Date: 10/15/24 ? Loc: HO.HOSX ? Attending Dr: Flora Ayon PA-C ? Ordering Physician: Flora Ayon PA-C ?? Date of Service: 10/15/24 ?? Procedure(s): XR ankle LT min 3V ?? Accession Number(s): [id number] ? cc: Jessica Shoemaker; Flora Ayon PA-C [...] DD/ 1147 ? TD/TT: 10/15/24 1157 ? Nurses' Registry Director: ? Procedure Note Wilmer, Giana - 10/16/2024 [facility] [address] [place] [address] XRay Report Signed Patient: Darell RocheR#: [id number] 608 : 2005Acct:[id number] Age/Sex: 19 / FADM Date: 10/15/24 Loc: ENIOKEILAJaguar Attending Dr: Flora Ayon PA-C Ordering Physician: Flora Ayon PA-C Date of Service: 10/15/24 Procedure(s): XR ankle LT min 3V Accession Number(s): [id number] cc: Jessica Shoemaker; Flora Ayon PA-C EXAMINATION: [...] 10/16/24 0808 DD/ 1147 TD/TT: 10/15/24 1157 Nurses' Registry Director: [facility] External Provider IMG XR PROCEDURES Final Result documented in this encounter Visit Diagnoses Diagnosis Avulsion fracture of distal fibula- Primary documented in this encounter Additional Health Concerns Assessment Noted Time PHQ-9 Depression Total Score: 0 08/07/19 9:18 AM EST documented as of this encounter Care Teams Emt/Paramedic Relationship Specialty Start Date End Date Jessica Shoemaker MD [address] [place] [phone] PCP - General Family Medicine 08/07/24 documented as of this encounter
--- NOTE | 2024-11-30 14:50 | A.OFFVIS_ITS ---
Intake Visit Reasons: PO-Lt Ankle ORIF 10/16/24 w xray Intake Note: Dahiana is a 19 year old female who presents today without cruthces for a post operative left ankle ORIF, DOS 10/16/24. Patient reports she is doing well. No pain or discomfort at the moment. Allergies No Known Allergies Allergy (Verified 10/30/24 13:01) HPI HPI PO-Lt Ankle ORIF 10/16/24 w xray: Details: Ms. Roche is a 19-year-old female who presents to the office today for routine follow-up status post left ankle ORIF performed on 10/16/[address] Eldridge. She has been into a cast at this point and nonweightbearing. She reports that she has been compliant with this. The cast was removed in the office today for x-rays to be obtained. Overall the patient is doing very well and experiencing little to no pain. [facility] Surgical History (Updated 10/30/24 @ 15:35 by Jennifer Marrero PA-C) History of appendectomy Social History Alcohol intake: never Patient Tobacco Use Status: Never used Tobacco Current occupational status: employed Current occupation: sub teacher/ rt hand Review of Systems Const All systems reviewed & are unremarkable except as noted in HPI and below Physical Exam Const General: cooperative, healthy appearing and no acute distress Resp Effort & Inspection: normal respiratory effort and able to speak in complete sentences Extrem Other: Left ankle incision sites are clean dry and intact. Well approximated and fully healed. She is able to dorsiflex plantar flex pronate and supinate with little pain and slight stiffness. Pedal pulses intact. Sensation is intact. Assessment & Plan Assessment & Plan (1) Status post ORIF of fracture of ankle: Code(s): Z98.890 - Other specified postprocedural states; Z87.81 - Personal history of (healed) traumatic fracture Category: Medical Plan Ms. Roche is a 19-year-old female who presents to the office today for routine follow-up status post left ankle ORIF performed on 10/16/[address] Eldridge. She has been into a cast at this point and nonweightbearing. She reports that she has been compliant with this. The cast was removed in the office today for x-rays to be obtained. Overall the patient is doing very well and experiencing little to no pain. While in the office today, the patient was transitioned to a tall walking boot off the shelf. She should wear the boot at all times while ambulating. I have also placed an order for physical therapy in which she should attend to work on range of motion, gait training and strengthening. She will follow up in 6 weeks with repeat x-rays, sooner if needed. X-rays of the left ankle which were obtained while in the office today and were reviewed by me, Jennifer Marrero PA-C, revealed intact orthopedic hardware with routine healing. Orders: Orders XR ankle LT min 3V Today M25.579 - Pain in unspecified ankle and joints of unspecified foot Coding Level of Care Code Global (18949) Diagnoses Status post ORIF of fracture of ankle Z98.890; Z87.81
== END 2024-11-30 15:30 | disposition home or self-care (01) ==
LOC: HO.HOS 14:22
PROVIDERS: PCP General Practice; Visit Provider Physician Assistant
DX: Z98.890 Other specified postprocedural states (principal); Z87.81 Personal history of (healed) traumatic fracture
CPT/HCPCS: 99024

== ENCOUNTER → 2024-11-30 14:47 | Outpatient (BNV) | payer MEDICAID, SELFPAY | PROVIDERS: Visit Provider Nuclear Medicine | DX: M25.579 Pain in unspecified ankle and joints of unspecified foot (principal) | CPT/HCPCS: 73610 ==

== ENCOUNTER 2025-01-11 06:54 | Outpatient (REF) | payer MEDICAID, SELFPAY ==
--- NOTE | ~2025-01-11 | XR_ITS ---
CLINICAL HISTORY: M25.579 - Pain in unspecified ankle and joints of unspecified foot 3 view left ankle Comparison: DX - XR ANKLE LT MIN 3V - 11/30/24 14:47 EDT Findings: Postsurgical changes from prior open reduction internal fixation of the medial malleolus. Periosteal new bone formation of the lateral malleolus, healing injury unchanged since 11/30/2024. No significant arthritic change or erosions. No ankle effusion. No radiopaque foreign body. IMPRESSION: No significant interval change since 11/30/2024. This document has been electronically signed by: Sathya Lucas MD, PHD on 01/13/2025 23:12:16
--- OUTSIDE RECORDS SUMMARY | 2025-01-14 06:56 | XMS_ITS | Encounter Summary ---
Author Organization [employer] Address [address] [facility] 7t [place] [address] Care Team Providers Care Program Director Group Work Name Role Phone Jessica Shoemaker MD Primary Care Provider [phone] Reason for Referral * Consultation (Routine) - Closed Specialty Diagnoses / Procedures Referred By Kandy estrada Referred To Contact Orthopaedic Surgery Diagnoses Avulsion fracture of distal fibula Jessica Shoemaker MD [address] [place] [address] Phone: tel: fax: [address] [place] [address] Phone: tel: fax: Referral ID Status Reason Start Date Expiration Date V isits Requested Visits Authorized [id number] Closed Specialty Services Required 10/15/2024 10/15/2025 6 6 * Consultation (Urgent) - Authorized Specialty Diagnoses / Procedures Referred By Kandy estrada Referred To Contact Orthopaedic Surgery Diagnoses Avulsion fracture of distal fibula Jessica Shoemaker MD [address] [place], [place] Phone: tel: fax: [place] [address] [place] [address] Phone: tel: fax: Referral ID Status Reason Start Date Expiration Date Visits Requested Visits Authorized [id number] Authorized Specialty Services Required 10/09/2024 10/09/2025 6 6 Encounter Details Date Type Department Care Team (Late st Contact Info) Description 10/09/2024 Orders Only [facility] [address] [facility] [place] [address] Jessica Shoemaker MD [address] [place] [address] Avulsion fracture of distal fibula (Primary Dx) [...] PM EDT Narrative 10/17/2024 7:15 AM EDT [place] [address] Fluoroscopy Report Signed Patient: Dahiana Roche MR#: [id number] 608 : 2005 Acct:[id number] Age/Sex: 19 / F ADM Date: 10/16/24 Loc: HO[facility] Attending Dr: Chase Eldridge MD Ordering Physician: Chase Eldridge MD Date of Service: 10/16/24 Procedure(s): FL guidance in OR Accession Number(s): [id number] cc: Chase Eldridge MD; Jessica Shoemaker EXAMINATION: FL GUIDANCE ONLY HISTORY: fracture left ankle COMPARISON: Correlation is made with plain films of the left ankle dated 10/15/2024. TECHNIQUE: Fluoroscopy time: 0.1 minutes. Cumulative Dose: 0.310 mGy. DAP: 0.72869 mGym2 Images: 2. FINDINGS: Images demonstrate internal [...] in OV> 10/17/24712 DD/ 54 TD/TT: 10/16/241554 Handkerchief Cutter: Procedure Note Donotuseinterpreter, Image - 10/17/2024 [place] [address] Fluoroscopy Report Signed Patient: Chayito Roche#: [id number] 608 : 2005Acct:[id number] Age/Sex: Date: 10/16/24 Loc: .[facility] Attending Dr: Chase Eldridge MD Ordering Physician: Chase Eldridge MD Date of Service: 10/16/24 Procedure(s): FL guidance in OR Accession Number(s): [id number] cc: Chase Eldridge MD; Jessica Shoemaker EXAMINATION: FL GUIDANCE ONLY HISTORY: fracture left ankle COMPARISON: Correlation is made with plain films of the left ankle dated 10/15/2024. TECHNIQUE: Fluoroscopy time: 0.1 minutes. Cumulative Dose: 0.310 mGy. DAP: 0.34399 mGym2 Images: 2. FINDINGS: Images demonstrate internal [...] in OV> 10/17/24712 DD/ 54 TD/TT: 10/16/241554 Handkerchief Cutter: [facility] External Provider IMG IR PROCEDURES Final Result * hCG, Total, Quantitative (10/16/2024 12:53 PM EDT) HCG Quantitative <2 mIU/mL [facility] Comment:Weeks post LMP Appro ximate hCG(Last Menstrual Period) Range (mIU/ml)3 - 4 weeks 9 - 1304 - 5 weeks 75 - 2,6005 - 6 weeks 850 - 20,8006 - 7 weeks 4000 - 100,2007 - 12 weeks 11,500 - 289,79286 - 16 weeks 18,300 - 137,14866 - 29 weeks (2nd trimester) 1,400 - 53,09233 - 41 weeks (3rd trimester) 940 - [...] Provider LAB BLOOD ORDERAB LES Final Result [facility] [address] [place] [address] [phone] * XR Ankle 3+ Views Left (10/15/2024 11:47 AM EDT) Anatomical Region Laterality Modality Lower Extremities, Ankle Left Radiogr aphic Imaging 10/15/2024 11:4 7 AM EDT Narrative 10/16/2024 8:11 AM EDT [facility] [address] [place] [address] XRay Report Signed Patient: Dahiana Roche MR#: [id number] 608 : 2005 Acct:[id number] Age/Sex: 19 / F ADM Date: 10/15/24 Loc: HO.HOSX Attending Dr: Flora Ayon PA-C Ordering Physician: Flora Ayon PA-C Date of Service: 10/15/24 Procedure(s): XR ankle LT min 3V Accession Number(s): [id number] cc: Jessica Shoemaker; Flora Ayon PA-C EXAMINATION: [...] 10/16/24 0808 DD/ 1147 TD/TT: 10/15/24 1157 Handkerchief Cutter: Procedure Note Donotuseinterpreter, Image - 10/16/2024 [facility] [address] [place] [address] XRay Report Signed Patient: Chayito Roche#: [id number] 608 : 2005Acct:[id number] Age/Sex: 19 / FADM Date: 10/15/24 Loc: [facility] Attending Dr: Flora Ayon PA-C Ordering Physician: Flora Ayon PA-C Date of Service: 10/15/24 Procedure(s): XR ankle LT min 3V Accession Number(s): [id number] cc: Jessica Shoemaker; Flora Ayon PA-C EXAMINATION: [...] 10/16/24 0808 DD/ 1147 TD/TT: 10/15/24 1157 Handkerchief Cutter: [facility] External Provider IMG XR PROCEDURES Final Result documented in this encounter Visit Diagnoses Diagnosis Avulsion fracture of distal fibula- Primary documented in this encounter Additional Health Concerns Assessment Noted Time PHQ-9 Depression Total Score: 0 08/07/19 9:18 AM EST documented as of this encounter Care Teams Program Director Group Work Relationship Specialty Start Date End Date Jessica Shoemaker MD [address] [place] [address] PCP - General Family Medicine 08/07/24 documented as of this encounter
== END 2025-01-11 06:55 | disposition home or self-care (01) ==
LOC: HO.HOSX 06:54
PROVIDERS: Visit Provider Physician Assistant
DX: Z98.890 Other specified postprocedural states (principal); Z87.81 Personal history of (healed) traumatic fracture
CPT/HCPCS: 73610; 99212

== ENCOUNTER 2025-01-11 10:48 | Outpatient (AMB) | payer MEDICAID, SELFPAY ==
--- NOTE | 2025-01-11 10:58 | MHC.OFFVIS ---
Intake Visit Reasons: PO-Lt Ankle ORIF 10/16/24 w xray Intake Note: Dahiana is a 19 year old female who presents today without crutches for a post operative left ankle ORIF, DOS 10/16/24. Patient reports no numbness, tingling, no pain or discomfort to report at this visit. She states that she does wear the boot but lately she feels that she doesn't need the boot anymore an discontinued use. Allergies No Known Allergies Allergy (Verified 01/11/25 11:04) HPI HPI PO-Lt Ankle ORIF 10/16/24 w xray: Details: Ms. Kaley christopher is a 19-year-old female who presents to the office today for routine follow-up status post left ankle ORIF performed on 10/16/[address] Eldridge. Patient reports that she has been out of the boot and walking normally. She has not been experiencing any pain. She did not attend any physical therapy and states that she is been working on range of motion at home. She has no complaints at today's visit. [facility] Surgical History (Updated 10/30/24 @ 15:35 by Jennifer Marrero PA-C) History of appendectomy Social History Alcohol intake: never Patient Tobacco Use Status: Never used Tobacco Current occupational status: employed Current occupation: sub teacher/ rt hand Review of Systems Const All systems reviewed & are unremarkable except as noted in HPI and below Physical Exam Const General: cooperative, healthy appearing and no acute distress Resp Effort & Inspection: normal respiratory effort and able to speak in complete sentences Extrem Other: Left ankle incision is well approximated and fully healed. There are no signs of infection. She is able to dorsiflex plantar flex pronate and supinate to end range. Pedal pulse intact. Sensation is intact. Assessment & Plan Assessment & Plan (1) Status post ORIF of fracture of ankle: Code(s): Z98.890 - Other specified postprocedural states; Z87.81 - Personal history of (healed) traumatic fracture Category: Surgical Plan Ms. Kaley christopher is a 19-year-old female who presents to the office today for routine follow-up status post left ankle ORIF performed on 10/16/[address] Eldridge. Patient reports that she has been out of the boot and walking normally. She has not been experiencing any pain. She did not attend any physical therapy and states that she is been working on range of motion at home. She has no complaints at today's visit. At this time, the patient has resume back to normal activities prior to today's appointment. She has not experienced any increase in pain or difficulty with ambulation. I instructed that she should continue performing gentle stretching of the ankle to prevent any stiffness. She can discontinue the boot at this time and transition to a supportive walking sneaker. She will follow up PRN, sooner as needed. X-rays of the left ankle which were obtained while in the office today and were reviewed by me, Jennifer Marrero PA-C, revealed intact orthopedic hardware with routine healing. Orders: Orders XR ankle LT min 3V Today M25.579 - Pain in unspecified ankle and joints of unspecified foot Coding Level of Care Code Global (98126) Diagnoses Status post ORIF of fracture of ankle Z98.890; Z87.81
--- OUTSIDE RECORDS SUMMARY | 2025-01-11 11:26 | XMS_ITS | Encounter Summary ---
Author Organization [employer] Address [address] [facility] 7t [place] [address] Care Team Providers Care High Value Associate Name Role Phone Jessica Shoemaker MD Primary Care Provider [phone] Reason for Referral * Consultation (Routine) - Closed Specialty Diagnoses / Procedures Referred By Kandy estrada Referred To Contact Orthopaedic Surgery Diagnoses Avulsion fracture of distal fibula Jessica Shoemaker MD [address] [place] [address] Phone: tel: fax: [place] [address] [place] [address] Phone: tel: fax: Referral ID Status Reason Start Date Expiration Date V isits Requested Visits Authorized [id number] Closed Specialty Services Required 10/15/2024 10/15/2025 6 6 * Consultation (Urgent) - Authorized Specialty Diagnoses / Procedures Referred By Kandy estrada Referred To Contact Orthopaedic Surgery Diagnoses Avulsion fracture of distal fibula Jessica Shoemaker MD [address] [place], [place] Phone: tel: fax: [place] [address] [place] [address] Phone: tel: fax: Referral ID Status Reason Start Date Expiration Date Visits Requested Visits Authorized [id number] Authorized Specialty Services Required 10/09/2024 10/09/2025 6 6 Encounter Details Date Type Department Care Team (Late st Contact Info) Description 10/09/2024 Orders Only [facility] [address] [facility] [place] [address] Jessica Shoemaker MD [address] [place] [address] Avulsion fracture of distal fibula (Primary Dx) [...] PM EDT Narrative 10/17/2024 7:15 AM EDT [place] [address] Fluoroscopy Report Signed Patient: Dahiana Roche MR#: [id number] 608 : 2005 Acct:[id number] Age/Sex: 19 / F ADM Date: 10/16/24 Loc: HO.[facility] Attending Dr: Chase Eldridge MD Ordering Physician: Chase Eldridge MD Date of Service: 10/16/24 Procedure(s): FL guidance in OR Accession Number(s): [id number] cc: Chase Eldridge MD; Jessica Shoemaker EXAMINATION: FL GUIDANCE ONLY HISTORY: fracture left ankle COMPARISON: Correlation is made with plain films of the left ankle dated 10/15/2024. TECHNIQUE: Fluoroscopy time: 0.1 minutes. Cumulative Dose: 0.310 mGy. DAP: 0.91285 mGym2 Images: 2. FINDINGS: Images demonstrate internal [...] signed by Bill Rocha MD in OV> 10/17/24712 DD/ 54 TD/TT: 10/16/241554 Die Keeper: Procedure Note Donotuseinterpreter, Image - 10/17/2024 [place] [address] Fluoroscopy Report Signed Patient: Chayito Roche#: [id number] 608 : 2005Acct:[id number] Age/Sex: Date: 10/16/24 Loc: .[facility] Attending Dr: Chase Eldridge MD Ordering Physician: Chase Eldridge MD Date of Service: 10/16/24 Procedure(s): FL guidance in OR Accession Number(s): [id number] cc: Chase Eldridge MD; Jessica Shoemaker EXAMINATION: FL GUIDANCE ONLY HISTORY: fracture left ankle COMPARISON: Correlation is made with plain films of the left ankle dated 10/15/2024. TECHNIQUE: Fluoroscopy time: 0.1 minutes. Cumulative Dose: 0.310 mGy. DAP: 0.55533 mGym2 Images: 2. FINDINGS: Images demonstrate internal [...] signed by Bill Rocha MD in OV> 10/17/24712 DD/ 54 TD/TT: 10/16/241554 Die Keeper: [facility] External Provider IMG IR PROCEDURES Final Result * hCG, Total, Quantitative (10/16/2024 12:53 PM EDT) HCG Quantitative <2 mIU/mL [facility] Comment:Weeks post LMP Appro ximate hCG(Last Menstrual Period) Range (mIU/ml)3 - 4 weeks 9 - 1304 - 5 weeks 75 - 2,6005 - 6 weeks 850 - 20,8006 - 7 weeks 4000 - 100,2007 - 12 weeks 11,500 - 289,04739 - 16 weeks 18,300 - 137,31792 - 29 weeks (2nd trimester) 1,400 - 53,13150 - 41 weeks (3rd trimester) 940 - [...] Provider LAB BLOOD ORDERAB LES Final Result [facility] [address] [place] [address] [phone] * XR Ankle 3+ Views Left (10/15/2024 11:47 AM EDT) Anatomical Region Laterality Modality Lower Extremities, Ankle Left Radiogr aphic Imaging 10/15/2024 11:4 7 AM EDT Narrative 10/16/2024 8:11 AM EDT [facility] [address] [place] [address] XRay Report Signed Patient: Dahiana Roche MR#: [id number] 608 : 2005 Acct:[id number] Age/Sex: 19 / F ADM Date: 10/15/24 Loc: HO.HOSX Attending Dr: Flora Ayon PA-C Ordering Physician: Flora Ayon PA-C Date of Service: 10/15/24 Procedure(s): XR ankle LT min 3V Accession Number(s): [id number] cc: Jessica Shoemaker; Flora Ayon PA-C EXAMINATION: [...] 10/16/24 0808 DD/ 1147 TD/TT: 10/15/24 1157 Die Keeper: Procedure Note Donotuseinterpreter, Image - 10/16/2024 [facility] [address] [place] [address] XRay Report Signed Patient: Chayito Roche#: [id number] 608 : 2005Acct:[id number] Age/Sex: 19 / FADM Date: 10/15/24 Loc: HO.[facility] Attending Dr: Flora Ayon PA-C Ordering Physician: Flora Ayon PA-C Date of Service: 10/15/24 Procedure(s): XR ankle LT min 3V Accession Number(s): [id number] cc: Jessica Shoemaker; Flora Ayon PA-C EXAMINATION: [...] 10/16/24 0808 DD/ 1147 TD/TT: 10/15/24 1157 Die Keeper: [facility] External Provider IMG XR PROCEDURES Final Result documented in this encounter Visit Diagnoses Diagnosis Avulsion fracture of distal fibula- Primary documented in this encounter Additional Health Concerns Assessment Noted Time PHQ-9 Depression Total Score: 0 08/07/19 9:18 AM EST documented as of this encounter Care Teams High Value Associate Relationship Specialty Start Date End Date Jessica Shoemaker MD [address] [place] [address] PCP - General Family Medicine 08/07/24 documented as of this encounter
== END 2025-01-11 11:23 | disposition home or self-care (01) ==
LOC: HO.HOS 10:49
PROVIDERS: Visit Provider Physician Assistant
DX: Z98.890 Other specified postprocedural states (principal); Z87.81 Personal history of (healed) traumatic fracture
CPT/HCPCS: 99024

== ENCOUNTER → 2025-01-11 10:52 | Outpatient (BNV) | payer MEDICAID, SELFPAY | PROVIDERS: Visit Provider General Practice | DX: M25.572 Pain in left ankle and joints of left foot (principal) | CPT/HCPCS: 73610 ==